=== PATIENT | female | born 1985 | race African-American/Black ===

== ENCOUNTER 2019-04-23 11:34 | Observation (INO) | payer OTHER ==
[~2019-04-23 11:34] MED LIST: Lactated Ringers 1,000 ML IV SCH; ceFAZolin 2 GM in Premix Bag 1 BAG IV SCH
[2019-04-23] MEDS ORDERED: Propofol 200 MG/20 ML SDV ONE (11:45)
[2019-04-23] MEDS ORDERED: fentaNYL 100 MCG/2 ML SDV ONE ×2 (11:45→13:59)
[2019-04-23] MEDS ORDERED: Ondansetron 4 MG/2 ML SDV ONE (11:45)
[2019-04-23] MEDS ORDERED: Lidocaine 2% 5 ML SDV ONE (11:45)
[2019-04-23] MEDS ORDERED: Dexamethasone 4 MG/ML 5 ML MDV ONE (11:45)
[2019-04-23] MEDS ORDERED: Midazolam 1 MG/ML 2 ML SDV ONE (11:46)
[2019-04-23] MEDS ORDERED: HYDROmorphone 2 MG/ML Syringe ONE (11:46)
[2019-04-23] MEDS ORDERED: Ketorolac 30 MG/ML SDV ONE (11:56)
--- NOTE | 2019-04-23 12:19 | PCM.PREANE ---
Preanesthetic Assessment - Anesthesia/Transfusion/Family Hx Anesthesia History: Prior Anesthesia Without Reaction Transfusion History: No Prior Transfusion(s) - Physical Assessment Height: 5 ft 7 in Weight: 79.379 kg - Lab Values: Laboratory Last Values Urine HCG, Qual NEGATIVE (NEGATIVE) 04/23/19 11:50 - Allergies Allergies/Adverse Reactions: Allergies Allergy/AdvReac Type Severity Reaction Status Date / Time bee venom protein (honey bee) Allergy Anaphylactic Verified 04/18/19 11:11 Shock food dye Allergy Rash Uncoded 04/18/19 11:15 PreAnesthesia Questionnaire HEENT History: Reports: None Cardiovascular History: Reports: None Respiratory History: Reports: Bronchitis, Recurrent Gastrointestinal History: Reports: None Genitourinary History: Reports: None Musculoskeletal History: Reports: Other (See Below) Other Musculoskeletal History: ACL Reconstruction- 2016 Neurological History: Reports: None Psychiatric History: Reports: PTSD Endocrine/Metabolic History: Reports: None Hematologic History: Reports: None Immunologic History: Reports: None Oncologic (Cancer) History: Reports: None Dermatologic History: Reports: None - Past Surgical History Head Surgeries/Procedures: Reports: None HEENT Surgical History: Reports: None Cardiovascular Surgical History: Reports: None Respiratory Surgical History: Reports: None GI Surgical History: Reports: None Female Surgical History: Reports: None Endocrine Surgical History: Reports: None Neurological Surgical History: Reports: None Musculoskeletal Surgical History: Reports: Arthroscopic Knee Oncologic Surgical History: Reports: None Dermatological Surgical History: Reports: None - SUBSTANCE USE Smoking Status *Q: Current Every Day Smoker Tobacco Use Within Last Twelve Months: Cigarettes - HOME MEDS Home Medications: Home Meds Divalproex Sodium [Depakote] 250 mg PO DAILY 04/18/19 [History] EPINEPHrine [Epinephrine] 1 injection SUBCUT ASDIRECTED PRN 04/18/19 [History] - CURRENT (IN HOUSE) MEDS Current Meds: Current Medications Cefazolin Sodium/Dextrose 2 gm (/ Premix) 50 mls @ 100 mls/hr IV ONCALL ADITYA Lactated Ringer's (Ringers, Lactated) 1,000 mls @ 100 mls/hr IV ASDIRECTED ADITYA Discontinued Medications Dexamethasone (Dexamethasone) Confirm Administered Dose 20 mg .ROUTE .STK-MED ONE Stop: 04/23/19 11:46 Fentanyl (Sublimaze) Confirm Administered Dose 100 mcg .ROUTE .STK-MED ONE Stop: 04/23/19 11:46 Hydromorphone HCl (Dilaudid) Confirm Administered Dose 2 mg .ROUTE .STK-MED ONE Stop: 04/23/19 11:47 Ketorolac Tromethamine (Toradol) Confirm Administered Dose 30 mg .ROUTE .STK- MED ONE Stop: 04/23/19 11:57 Lidocaine (Xylocaine-Mpf 2%) Confirm Administered Dose 5 ml .ROUTE .STK-MED ONE Stop: 04/23/19 11:46 Midazolam HCl (Versed 1 Mg/Ml) Confirm Administered Dose 2 mg .ROUTE .STK-MED ONE Stop: 04/23/19 11:47 Ondansetron HCl (Zofran) Confirm Administered Dose 4 mg .ROUTE .STK-MED ONE Stop: 04/23/19 11:46 Propofol (Diprivan 20 Ml) Confirm Administered Dose 400 mg .ROUTE .STK-MED ONE Stop: 04/23/19 11:46
--- NOTE | 2019-04-23 12:41 | PCM.PREANE ---
Preanesthetic Assessment - Anesthesia/Transfusion/Family Hx Anesthesia History: Prior Anesthesia Without Reaction Family History of Anesthesia Reaction: No Transfusion History: No Prior Transfusion(s) Intubation History: Unknown - Review of Systems General: No Symptoms Pulmonary: No Symptoms Cardiovascular: No Symptoms Gastrointestinal: No Symptoms Neurological: No Symptoms Other: Reports: None - Physical Assessment NPO Status Date: 04/22/19 NPO Status Time: 23:00 Vital Signs: Last Vital Signs Temp 36.4 C 04/23/19 12:00 Pulse 67 04/23/19 12:00 Resp 16 04/23/19 12:00 BP 112/55 L 04/23/19 12:00 Pulse Ox 97 04/23/19 12:00 Height: 5 ft 7 in Weight: 79.379 kg ASA Class: 2 Mental Status: Alert & Oriented x3 Airway Class: Mallampati = 1 Dentition: Reports: Normal Dentition Thyro-Mental Finger Breadths: 3 Mouth Opening Finger Breadths: 3 ROM/Head Extension: Full Lungs: Clear to Auscultation, Normal Respiratory Effort Cardiovascular: Regular Rate, Regular Rhythm - Lab Values: Laboratory Last Values Urine HCG, Qual NEGATIVE (NEGATIVE) 04/23/19 11:50 - Allergies Allergies/Adverse Reactions: Allergies Allergy/AdvReac Type Severity Reaction Status Date / Time bee venom protein (honey bee) Allergy Anaphylactic Verified 04/18/19 11:11 Shock food dye Allergy Rash Uncoded 04/18/19 11:15 - Blood Blood Available: No - Anesthesia Plan Pre-Op Medication Ordered: None - Acknowledgements Anesthesia Type Planned: General Anesthesia (femoral nerve block for postoperative pain control) Pt an Appropriate Candidate for the Planned Anesthesia: Yes Alternatives and Risks of Anesthesia Discussed w Pt/Guardian: Yes Pt/Guardian Understands and Agrees with Anesthesia Plan: Yes PreAnesthesia Questionnaire HEENT History: Reports: None Cardiovascular History: Reports: None Respiratory History: Reports: Bronchitis, Recurrent (seasonal) Gastrointestinal History: Reports: None Genitourinary History: Reports: None Musculoskeletal History: Reports: Other (See Below) Other Musculoskeletal History: ACL Reconstruction- 2016 Neurological History: Reports: None Psychiatric History: Reports: PTSD Endocrine/Metabolic History: Reports: None Hematologic History: Reports: None Immunologic History: Reports: None Oncologic (Cancer) History: Reports: None Dermatologic History: Reports: None - Past Surgical History Head Surgeries/Procedures: Reports: None HEENT Surgical History: Reports: None Cardiovascular Surgical History: Reports: None Respiratory Surgical History: Reports: None GI Surgical History: Reports: None Female Surgical History: Reports: None Endocrine Surgical History: Reports: None Neurological Surgical History: Reports: None Musculoskeletal Surgical History: Reports: Arthroscopic Knee (ACL repair '15 in [facility]) Oncologic Surgical History: Reports: None Dermatological Surgical History: Reports: None - SUBSTANCE USE Smoking Status *Q: Current Every Day Smoker (1/2 ppd) Tobacco Use Within Last Twelve Months: Cigarettes Days Per Week of Alcohol Use: 1 Recreational Drug Use History: Yes Recreational Drug Type: Reports: Marijuana/Hashish - HOME MEDS Home Medications: Home Meds Divalproex Sodium [Depakote] 250 mg PO DAILY 04/18/19 [History] EPINEPHrine [Epinephrine] 1 injection SUBCUT ASDIRECTED PRN 04/18/19 [History] - CURRENT (IN HOUSE) MEDS Current Meds: Current Medications Cefazolin Sodium/Dextrose 2 gm (/ Premix) 50 mls @ 100 mls/hr IV ONCALL ADITYA Lactated Ringer's (Ringers, Lactated) 1,000 mls @ 100 mls/hr IV ASDIRECTED ADITYA Last Admin: 04/23/19 12:23 Dose: 100 mls/hr Discontinued Medications Dexamethasone (Dexamethasone) Confirm Administered Dose 20 mg .ROUTE .STK-MED ONE Stop: 04/23/19 11:46 Fentanyl (Sublimaze) Confirm Administered Dose 100 mcg .ROUTE .STK-MED ONE Stop: 04/23/19 11:46 Hydromorphone HCl (Dilaudid) Confirm Administered Dose 2 mg .ROUTE .STK-MED ONE Stop: 04/23/19 11:47 Ketorolac Tromethamine (Toradol) Confirm Administered Dose 30 mg .ROUTE .STK- MED ONE Stop: 04/23/19 11:57 Lidocaine (Xylocaine-Mpf 2%) Confirm Administered Dose 5 ml .ROUTE .STK-MED ONE Stop: 04/23/19 11:46 Midazolam HCl (Versed 1 Mg/Ml) Confirm Administered Dose 2 mg .ROUTE .STK-MED ONE Stop: 04/23/19 11:47 Ondansetron HCl (Zofran) Confirm Administered Dose 4 mg .ROUTE .STK-MED ONE Stop: 04/23/19 11:46 Propofol (Diprivan 20 Ml) Confirm Administered Dose 400 mg .ROUTE .[facility] ONE Stop: 04/23/19 11:46
[2019-04-23] MEDS ORDERED: Bupivacaine 0.5%/EPINEPHrine 1:200,000 10 ML SDV ONE ×3 (13:13→18:11)
[2019-04-23] MEDS ORDERED: Bupivacaine 0.5% 30 ML SDV ONE (13:38)
[2019-04-23] MEDS ORDERED: ePHEDrine 50 MG/ML SDV ONE (13:50)
--- NOTE | 2019-04-23 14:37 | PCM.OPNOTE ---
- General Post-Op/Procedure Note Date of Surgery/Procedure: 04/23/19 Operative Procedure(s): r acl revision recon Pre Op Diagnosis: r acl rupture Post-Op Diagnosis: Same Anesthesia Technique: General ET Tube Primary Surgeon: Parker Romero Bulk Fluids Handler: Jennifer Roth EBL in mLs: 25 Complications: None Condition: Good
[2019-04-23] MEDS ORDERED: EPINEPHrine 1 MG/ML SDV ONE (14:50)
[2019-04-23] MEDS ORDERED: Albuterol/Ipratropium 3.0-0.5 MG/3 ML Neb Soln ONE (15:00)
[2019-04-23] MEDS ORDERED: Naloxone 0.4 MG/ML Syringe IVPUSH PRN (15:25)
[2019-04-23] MEDS ORDERED: fentaNYL 100 MCG/2 ML SDV IVPUSH PRN (15:25)
[2019-04-23] MEDS ORDERED: Albuterol 0.083% 2.5 MG/3 ML Neb Soln NEB PRN (15:25)
[2019-04-23] MEDS ORDERED: Atropine 0.1 MG/ML 10 ML Syringe IVPUSH PRN ×2 (15:25)
[2019-04-23] MEDS ORDERED: EPINEPHrine 1:10,000 1 MG/10 ML Syringe IVPUSH PRN (15:25)
[2019-04-23] MEDS ORDERED: 50% Dextrose in Water 50 ML Syringe IVPUSH PRN (15:25)
[2019-04-23] MEDS ORDERED: Albuterol/Ipratropium 3.0-0.5 MG/3 ML Neb Soln NEB ONE ×2 (15:39→16:24)
[2019-04-23] MEDS ORDERED: Acetaminophen/oxyCODONE 325-5 MG Tab ONE (16:25)
--- NOTE | 2019-04-23 16:26 | PCM.POSTAN ---
POST ANESTHESIA ASSESSMENT - MENTAL STATUS Mental Status: Alert, Oriented - VITAL SIGNS Vital Signs: Last Vital Signs Temp 97.2 F 04/23/19 14:49 Pulse 87 04/23/19 15:56 Resp 16 04/23/19 15:56 BP 110/61 04/23/19 15:56 Pulse Ox 95 04/23/19 15:56 - RESPIRATORY Respiratory Status: Respiratory Rate WNL, Airway Patent, O2 Saturation Stable - CARDIOVASCULAR CV Status: Pulse Rate WNL, Blood Pressure Stable - GASTROINTESTINAL GI Status: No Symptoms - PAIN Pain Score: 0 - POST OP HYDRATION Hydration Status: Adequate & Stable - OBSERVATIONS Free Text/Narrative:: No anesthesia complications noted
[2019-04-23] MEDS: Acetaminophen/oxyCODONE 325-5 MG Tab PO PRN ×2 (16:27→22:12)
[2019-04-23] MEDS ORDERED: Furosemide 40 MG/4 ML VIAL IVPUSH ONE (17:07)
[2019-04-23] MEDS ORDERED: Furosemide 20 MG/2 ML VIAL ONE (17:09)
--- NOTE | 2019-04-23 17:53 | CR ---
Chest: Portable view of the chest was obtained. Comparison: No prior chest x-rays available. Heart size and mediastinum are normal. Diffuse increased density seen throughout both lungs. Bony structures are grossly intact. Impression: 1. Diffuse increased density within both sides of the chest. Findings most likely represent diffuse pneumonia. Noncardiogenic pulmonary edema is also within the differential as well as cardiogenic pulmonary edema patient has had acute cardiac event. Less likely etiology is pulmonary hemorrhage. Diagnostic code #5 This report was dictated in MDT
--- NOTE | 2019-04-23 18:02 | PCM.SN ---
- Free Text/Narrative Note: 1600 Pt lungs sounding course so nurse gave duo nebulizer treatment. 1610 Notified that pt was coughing up bloody tinged sputum. Reported to me from LAURYN Collins doing the case that pt had an episode after extubation where she may have had a spasm. Stated that pt was suctioned and saturations recovered. Based off of history given to me about case and pt signs and symptoms my thoughts were that the pt has negative pulmonary edema from the laryngeal spasm. 1615 Dr. Lozano notified to discuss my thoughts and he agreed. Continued to watch patient 1705 Pt continues to cough up blood tinged sputum and doesn't seem to be improving o2 saturation on Room air 88% but with o2 96% Pt aware of condition and verbalizes understanding. Stat chest x-ray ordered and 10 mg of Lasix was given after x-ray which was at 1720. 1715 X ray shows pulmonary edema. 1725 called and notified of patients condition discussed admitting pt for observation do to pt's asthma history and current condition with no o2 improvement on Room air. 1800 Pt stating pain is 9/10 to right knee as well. Discussed pain block with patient and she agrees to letting me preform an adductor canal block. 1815 Dr. Duran called about patient admission to observation in ICU. Report given verbalized understanding of patient. 1825 Adductor cannal block preformed pt tolerated well. See procedure note. 1840 Pt taken to ICU per nursing staff. States pain is getting better in right knee. Pt's o2 saturation still 88 % on room air but 98% with o2. Pt still coughing up pink frothy sputum but I would say the frequency has decreased.
[2019-04-23] MEDS ORDERED: Bupivacaine 0.25%/EPINEPHrine 1:200,000 10 ML SDV ONE (18:13)
--- NOTE | 2019-04-23 18:16 | OR ---
SURGEON: Parekr Romero DATE OF PROCEDURE: 04/23/2019 PREOPERATIVE DIAGNOSIS: Right anterior cruciate ligament rupture. POSTOPERATIVE DIAGNOSIS: Right anterior cruciate ligament rupture. PROCEDURE: Right anterior cruciate ligament revision with reconstruction. PRIMARY SURGEON: Parker Romero DO. HVAC SPECIALIST: NOAH Copeland. ROLE OF HVAC SPECIALIST: Nurse practitioner, NOAH Copeland, played an essential role in assisting in this case, helping to position the patient, retract structures as needed, as well as suturing and cutting sutures as indicated. Her presence improved patient's safety and decreased operative time. ANESTHESIA: General endotracheal intubation. FLUID: Lactated Ringer's solution. ESTIMATED BLOOD LOSS: 25 mL. COMPLICATIONS: None. SPECIMEN: None. DISCHARGE DISPOSITION: Stable to PACU. HISTORY AND INDICATIONS FOR THE PROCEDURE: The patient is well known to me. We saw her in clinic. She had failed nonoperative treatment after a fall. Preoperative imaging confirmed the above- mentioned diagnosis. Risks and benefits of the procedure were explained to the patient. Informed consent was obtained. DETAILS OF PROCEDURE: The patient was seen preoperatively by myself and the Anesthesia staff in the preoperative holding area where the operative site was marked. She was brought to the operative suite by the Anesthesia staff where general anesthesia was administered. All extremities were found to be well padded. The left lower extremity was placed into a stirrup. The right lower extremity was placed into a leg perez. A well-padded tourniquet had been placed on the right thigh. The right lower extremity was then prepped and draped in a sterile manner. Time-out was called identifying the correct patient, the correct procedure, the correct site, and that antibiotics had been given within appropriate period of time. The right lower extremity was exsanguinated. Tourniquet was raised to 250 mmHg. A medial portal was made through the patellar tendon. Lateral portal was made just anterior to the patellar tendon, 1 cm distal to the patella. Lateral portal was then entered. The patellofemoral joint was evaluated and found to have no chondromalacia. Medial and lateral compartments were in good repair. There was a small medial meniscus tear, which was repaired using the shaver and ablation unit. Anterior cruciate ligament was torn from its tibial attachment and very little of it was remaining. I cleaned up the remainder of the anterior cruciate ligament. I then performed more of a notchplasty to provide more room and then prepared both the femoral and tibial graft sites. I then inserted a size 7 back wall guide at approximately the 10 o'clock position and drilled the guidewire out through the lateral femur. I incised the skin to bring it through. I brought this through to the appropriate point for measurement. I then measured a 42 from the button on the graft and then a 25 mm on the graft. The graft measured 10 mm, which had been prepared by my regulatory assistant. I then used a 4.5 reamer to go through, all the way through the lateral cortex, and then reamed 25 mm with a 10 mm reamer from inside towards the lateral cortex. After this had been done, I then used my guide pin to bring through the suture passing suture. I then focussed on tibial preparation. I have made an incision horizontally about 3 fingerbreadths distal to the joint line just lateral to the medial cortex. I then inserted my 55 degree guide just anterior to the medial tibial spine. I placed my guide pin through it and then removed my guide and then reamed to 10 mm. I then removed my reamer. We passed the suture passer and passing suture back through the tibial tunnel. We then passed the graft with a [place] button through, up through the femoral tunnel. I then flipped my button and then assured that it was stable by pulling on the tibial side. I then used my white sutures to bring the graft through to 25 mm. I then cycled the knee under tension with the ACL graft and then inserted a guide pin and then my 10 mm interference screw. I then inspected and debrided with the shaver any extra bone material and then tested the graft with the probe. It was in good position and had good stability with negative anterior drawer. I then cut my sutures and then my assist closed with 3-0 nylon interrupted horizontal mattress sutures followed by Betadine-soaked Adaptic, fluffs, and an Ger wrap. The patient was allowed to awaken from general anesthesia and taken to the PACU in stable condition. [id number] / MODL /[id number]
--- NOTE | 2019-04-23 19:00 | PCM48HPAN ---
Post Anesthesia Note - EVALUATION WITHIN 48HRS OF ANESTHETIC Vital Signs in Normal Range: Yes Patient Participated in Evaluation: Yes Respiratory Function Stable: No (Pt admitted to ICU observation for pulmonary edema) Airway Patent: Yes Cardiovascular Function Stable: Yes Hydration Status Stable: Yes Pain Control Satisfactory: Yes Nausea and Vomiting Control Satisfactory: Yes Mental Status Recovered: Yes Vital Signs: Last Vital Signs Temp 97.2 F 04/23/19 14:49 Pulse 87 04/23/19 15:56 Resp 16 04/23/19 15:56 BP 110/61 04/23/19 15:56 Pulse Ox 95 04/23/19 15:56 - COMMENTS/OBSERVATIONS Free Text/Narrative:: Pt had some episodes of coughing up bloody tinged sputum x-ray shows pulmonary edema. Pt unable to keep room air saturation greater than 90 %. Pt admitted to ICU observation for the night.
--- NOTE | 2019-04-23 19:07 | PCM.PRNOTE ---
- Free Text/Narrative Note: [id number] Adductor Canal Block Post op pain control/Surgeon request Ultrasound guided Sterile technique with chloroprep and sterile gloves 20 gauge stimiplex needle used. No adverse reactions pt tolerated well. No anesthesia concerns noted. Standard monitors applied during block Pt states pain went from 9-4 in a short period of time.
[2019-04-23 20:06] LABS: BLOOD UREA NITROGEN,BUN 12 mg/dL (7.0-18.0); CARBON DIOXIDE,CO2 22.9 mmol/L (21.0-32.0); CHLORIDE,CL 104 mmol/L (98-107); GLUCOSE RANDOM 136 mg/dL (74-106); POTASSIUM,K 3.4 mmol/L (3.5-5.1); SODIUM,NA 139 mmol/L (136-145)
--- NOTE | 2019-04-23 20:24 | PCM.CONS ---
H&P History of Present Illness - General Date of Service: 04/23/19 Admit Problem/Dx: Revision Right knee ACL - History of Present Illness Initial Comments - Free Text/Narative: 33 yo female with pmh of asthma who was admitted for hypoxia following right ACL repair. Patient following extubation from the ACL repair was suspected to have a laryngeal spasm and started to produce pink frothy sputum. She was noted to desatting to 88% on RA. Chest x-ray showed bilateral pulmonary edema. She was given IV lasix in PACU with improvement in oxygenation and is not satting 95% on room air. Right Lower Leg Pain Score (Numeric/FACES): 5 Headache Pain Score (Numeric/FACES): 6 - Related Data Allergies/Adverse Reactions: Allergies Allergy/AdvReac Type Severity Reaction Status Date / Time bee venom protein (honey bee) Allergy Anaphylactic Verified 04/18/19 11:11 Shock food dye Allergy Rash Uncoded 04/18/19 11:15 Home Medications: Home Meds Divalproex Sodium [Depakote] 250 mg PO DAILY 04/18/19 [History] EPINEPHrine [Epinephrine] 1 injection SUBCUT ASDIRECTED PRN 04/18/19 [History] oxyCODONE HCl/Acetaminophen [Percocet 5-325 mg Tablet] 1 each PO Q6HR #28 tablet 04/23/19 [Rx] levoFLOXacin [Levaquin] 750 mg PO DAILY #3 tab 04/25/19 [Rx] Past Medical History HEENT History: Reports: None Cardiovascular History: Reports: None Respiratory History: Reports: Bronchitis, Recurrent Gastrointestinal History: Reports: None Genitourinary History: Reports: None Musculoskeletal History: Reports: Other (See Below) Other Musculoskeletal History: ACL Reconstruction- 2015 Neurological History: Reports: None Psychiatric History: Reports: PTSD Endocrine/Metabolic History: Reports: None Hematologic History: Reports: None Immunologic History: Reports: None Oncologic (Cancer) History: Reports: None Dermatologic History: Reports: None - Past Surgical History Head Surgeries/Procedures: Reports: None HEENT Surgical History: Reports: None Cardiovascular Surgical History: Reports: None Respiratory Surgical History: Reports: None GI Surgical History: Reports: None Female Surgical History: Reports: None Endocrine Surgical History: Reports: None Neurological Surgical History: Reports: None Musculoskeletal Surgical History: Reports: Arthroscopic Knee Oncologic Surgical History: Reports: None Dermatological Surgical History: Reports: None Social & Family History - Tobacco Use Smoking Status *Q: Current Every Day Smoker Years of Tobacco use: 10 Packs/Tins Daily: 0.5 - Caffeine Use Caffeine Use: Reports: Coffee - Alcohol Use Days Per Week of Alcohol Use: 1 - Recreational Drug Use Recreational Drug Use: Yes Drug Use in Last 12 Months: Yes Recreational Drug Type: Reports: Marijuana/Hashish H&P Review of Systems - Review of Systems: Review Of Systems: Comprehensive ROS is negative, except as noted in HPI. Exam - Exam Exam: See Below - Vital Signs Vital Signs: Last Vital Signs Temp 36.7 C 04/23/19 18:45 Pulse 86 04/23/19 18:30 Resp 14 04/23/19 19:15 BP 132/69 04/23/19 19:15 Pulse Ox 95 04/23/19 19:15 Weight: 79.379 kg - Exam General: Alert, Oriented HEENT: Conjunctiva Clear, Mucosa Moist & [place] Lungs: Clear to Auscultation, Normal Respiratory Effort Cardiovascular: Regular Rate, Regular Rhythm GI/Abdominal Exam: Normal Bowel Sounds, Soft, Non-Tender Skin: Warm, Dry, Intact Neurological: No: Focal Deficit - Patient Data Lab Results Last 24 hrs: Laboratory Results - last 24 hr 04/23/19 04/23/19 04/23/19 Range/Units 11:50 19:29 19:29 WBC 17.59 H (4.0-11.0) K/uL RBC 4.95 (4.30-5.90) M/uL Hgb 13.8 (12.0-16.0) g/dL Hct 42.0 (36.0-46.0) % MCV 84.8 (80.0-98.0) fL MCH 27.9 (27.0-32.0) pg MCHC 32.9 (31.0-37.0) g/dL RDW Std Deviation 40.9 (28.0-62.0) fl RDW Coeff of Brayden 13 (11.0-15.0) % Plt Count 160 (150-400) K/uL MPV 9.20 (7.40-12.00) fL Neut % (Auto) 94.9 H (48.0-80.0) % Lymph % (Auto) 2.5 L (16.0-40.0) % [place] % (Auto) 2.5 (0.0-15.0) % Eos % (Auto) 0.0 (0.0-7.0) % Baso % (Auto) 0.1 (0.0-1.5) % Neut # (Auto) 16.7 H (1.4-5.7) K/uL Lymph # (Auto) 0.4 L (0.6-2.4) K/uL [place] # (Auto) 0.4 (0.0-0.8) K/uL Eos # (Auto) 0.0 (0.0-0.7) K/uL Baso # (Auto) 0.0 (0.0-0.1) K/uL Nucleated RBC % 0.0 /100WBC Nucleated RBCs # 0 K/uL Sodium 139 (136-145) mmol/L Potassium 3.4 L (3.5-5.1) mmol/L Chloride 104 (98-107) mmol/L Carbon Dioxide 22.9 (21.0-32.0) mmol/L BUN 12 (7.0-18.0) mg/dL Creatinine 1.0 (0.6-1.0) mg/dL Est Cr Clr Drug Dosing 79.27 mL/min Estimated GFR (MDRD) > 60.0 ml/min Glucose 136 H (74-106) mg/dL Calcium 8.6 (8.5-10.1) mg/dL Total Bilirubin 0.5 (0.2-1.0) mg/dL AST 17 (15-37) IU/L ALT 19 (14-63) IU/L Alkaline Phosphatase 42 L (46-116) U/L Total Protein 6.6 (6.4-8.2) g/dL Albumin 3.5 (3.4-5.0) g/dL Globulin 3.1 (2.6-4.0) g/dL Albumin/Globulin Ratio 1.1 (0.9-1.6) Urine HCG, Qual NEGATIVE (NEGATIVE) Result Diagrams: 04/25/19 06:13 04/25/19 06:13 Sepsis Event Note - Evaluation Sepsis Screening Result: No Definite Risk - Focused Exam Vital Signs: Vital Signs Temp Pulse Pulse Resp BP Pulse Ox 04/23/19 19:15 14 132/69 95 04/23/19 19:00 15 125/70 97 04/23/19 18:45 36.7 C 18 114/47 L 98 04/23/19 18:30 86 16 126/57 L 95 04/23/19 18:15 81 16 122/57 L 94 L 04/23/19 17:45 89 16 130/58 L 93 L 04/23/19 17:15 20 142/65 H 90 L 04/23/19 16:50 92 18 131/53 L 90 L 04/23/19 16:35 91 20 125/69 93 L 04/23/19 16:20 86 18 105/53 L 92 L 04/23/19 16:05 36.2 C 87 18 121/57 L 88 L 04/23/19 15:56 87 16 110/61 95 04/23/19 15:51 79 20 108/60 96 04/23/19 15:49 86 21 H 109/60 94 L 04/23/19 15:46 74 24 H 99/51 L 96 04/23/19 15:41 81 12 117/51 L 98 04/23/19 15:36 74 13 116/49 L 94 L 04/23/19 15:31 79 16 120/58 L 97 04/23/19 15:26 75 15 114/56 L 96 04/23/19 15:21 78 24 H 115/61 92 L 04/23/19 15:16 89 19 120/61 97 04/23/19 15:11 89 16 111/64 96 04/23/19 15:06 86 19 118/47 L 98 04/23/19 15:01 87 21 H 126/43 L 95 04/23/19 14:49 36.2 C 106 H 19 120/79 94 L 04/23/19 12:00 36.4 C 67 16 112/55 L 97 Date Exam was Performed: 04/29/19 Time Exam was Performed: 16:28 Consult PN Assessment/Plan Procedures: Procedures ELECTRIC STIMULATION THERAPY (02/24/19) HOT OR COLD PACKS THERAPY (02/24/19) PT EVAL LOW COMPLEX 20 MIN (02/24/19) THERAPEUTIC ACTIVITIES (02/24/19) THERAPEUTIC EXERCISES (02/24/19) X-RAY EXAM NECK SPINE 2-3 VW (11/04/18) X-RAY EXAM OF KNEE 3 (11/04/18) X-RAY EXAM THORAC SPINE 2VWS (11/04/18) Problem List Initiated/Reviewed/Updated: Yes My Orders Last 24 Hours: My Active Orders 04/23/19 19:12 B-TYPE NATRIURETIC PEPTIDE,BNP [CHEM] Routine 04/23/19 19:13 Echo Comp wo Cont [US] Routine Plan: 33 yo female admitted for negative pressure pulmonary edema from postextubation laryngeal spasm. Patient was given lasix and is currently doing well. A pneumonia is unlikely. We will monitor overnight.
[2019-04-23] MEDS ORDERED: Potassium Chloride 20 MEQ Tab.ER PO ONE (20:37)
[2019-04-23] MEDS: Morphine 2 MG/ML SYRINGE IVPUSH PRN (20:42)
[2019-04-23] MEDS: Nicotine 14 MG/24 Hr Patch TRDERM SCH (22:12)
[2019-04-24] MEDS: Acetaminophen/oxyCODONE 325-5 MG Tab PO PRN ×4 (03:09→19:37)
--- NOTE | 2019-04-24 07:51 | CR ---
Chest: Portable view of the chest was obtained. Comparison: Prior chest x-ray of 04/23/19. Diffuse increased density within both sides of the chest again noted. Findings are felt to be slightly improved from prior study. No worsening is seen. Heart size and mediastinum are normal. Bony structures are grossly intact. Impression: 1. Slightly improved chest. Diagnostic code #3 This report was dictated in MDT
[2019-04-24] MEDS: Nicotine 14 MG/24 Hr Patch TRDERM SCH (08:56)
[2019-04-24] MEDS: Docusate Sodium 100 MG Cap PO SCH (10:02)
[2019-04-24] MEDS: Morphine 2 MG/ML SYRINGE IVPUSH PRN (10:03)
[2019-04-24] MEDS ORDERED: Furosemide 40 MG/4 ML VIAL IVPUSH ONE (10:08)
[2019-04-24 11:33] LABS: BLOOD UREA NITROGEN,BUN 11 mg/dL (7.0-18.0); CARBON DIOXIDE,CO2 25.3 mmol/L (21.0-32.0); CHLORIDE,CL 107 mmol/L (98-107); GLUCOSE RANDOM 81 mg/dL (74-106); POTASSIUM,K 3.6 mmol/L (3.5-5.1); SODIUM,NA 142 mmol/L (136-145)
[2019-04-24] MEDS: Levofloxacin/Dextrose 5%-Water 750 MG in Premix Bag 1 BAG IV SCH (11:36)
--- NOTE | 2019-04-24 12:38 | PCM.CONSN ---
- General Info Date of Service: 04/24/19 Admission Dx/Problem (Free Text): Negative pressure pulmonary edema s/p extubation Subjective Update: Feeling improved today, continues to cough up hemotysis. Pain is elevating to knee. No chest pain. Breathing ok, has Bipap on now. in good spirits. really wanting to go home soon. Functional Status: Reports: Tolerating Diet. Denies: Pain Controlled - Review of Systems General: Reports: No Symptoms. Denies: Fever, Weakness, Fatigue HEENT: Reports: No Symptoms. Denies: Sore Throat, Visual Changes Pulmonary: Reports: Cough, Sputum, Hemoptysis. Denies: Shortness of Breath, Pleuritic Chest Pain Cardiovascular: Reports: No Symptoms. Denies: Chest Pain Gastrointestinal: Reports: No Symptoms. Denies: Abdominal Pain, Nausea, Vomiting Genitourinary: Reports: No Symptoms. Denies: Dysuria, Frequency, Burning Musculoskeletal: Reports: Joint Pain (knee pain) Skin: Reports: No Symptoms Neurological: Reports: No Symptoms Psychiatric: Reports: No Symptoms - Patient Data Vitals - Most Recent: Last Vital Signs Temp 98 F 04/24/19 07:30 Pulse 87 04/24/19 09:00 Resp 16 04/24/19 09:00 BP 117/70 04/24/19 09:00 Pulse Ox 98 04/24/19 09:00 Weight - Most Recent: 79.379 kg I&O - Last 24 Hours: Intake & Output 04/23/19 04/24/19 04/24/19 22:59 06:59 14:59 Intake Total 1600 800 Output Total 1300 Balance 1600 -500 Lab Results Last 24 Hours: Laboratory Results - last 24 hr 04/23/19 04/23/19 04/23/19 Range/Units 19:29 19:29 19:29 WBC 17.59 H (4.0-11.0) K/uL RBC 4.95 (4.30-5.90) M/uL Hgb 13.8 (12.0-16.0) g/dL Hct 42.0 (36.0-46.0) % MCV 84.8 (80.0-98.0) fL MCH 27.9 (27.0-32.0) pg MCHC 32.9 (31.0-37.0) g/dL RDW Std Deviation 40.9 (28.0-62.0) fl RDW Coeff of Brayden 13 (11.0-15.0) % Plt Count 160 (150-400) K/uL MPV 9.20 (7.40-12.00) fL Neut % (Auto) 94.9 H (48.0-80.0) % Lymph % (Auto) 2.5 L (16.0-40.0) % [place] % (Auto) 2.5 (0.0-15.0) % Eos % (Auto) 0.0 (0.0-7.0) % Baso % (Auto) 0.1 (0.0-1.5) % Neut # (Auto) 16.7 H (1.4-5.7) K/uL Lymph # (Auto) 0.4 L (0.6-2.4) K/uL Franklin # (Auto) 0.4 (0.0-0.8) K/uL Eos # (Auto) 0.0 (0.0-0.7) K/uL Baso # (Auto) 0.0 (0.0-0.1) K/uL Nucleated RBC % 0.0 /100WBC Nucleated RBCs # 0 K/uL Sodium 139 (136-145) mmol/L Potassium 3.4 L (3.5-5.1) mmol/L Chloride 104 (98-107) mmol/L Carbon Dioxide 22.9 (21.0-32.0) mmol/L BUN 12 (7.0-18.0) mg/dL Creatinine 1.0 (0.6-1.0) mg/dL Est Cr Clr Drug Dosing 79.27 mL/min Estimated GFR (MDRD) > 60.0 ml/min Glucose 136 H (74-106) mg/dL Calcium 8.6 (8.5-10.1) mg/dL Total Bilirubin 0.5 (0.2-1.0) mg/dL AST 17 (15-37) IU/L ALT 19 (14-63) IU/L Alkaline Phosphatase 42 L (46-116) U/L B-Natriuretic Peptide 18 (<100) PG/ML Total Protein 6.6 (6.4-8.2) g/dL Albumin 3.5 (3.4-5.0) g/dL Globulin 3.1 (2.6-4.0) g/dL Albumin/Globulin Ratio 1.1 (0.9-1.6) 04/24/19 04/24/19 Range/Units 10:24 10:24 WBC 16.15 H (4.0-11.0) K/uL RBC 4.90 (4.30-5.90) M/uL Hgb 13.8 (12.0-16.0) g/dL Hct 41.7 (36.0-46.0) % MCV 85.1 (80.0-98.0) fL MCH 28.2 (27.0-32.0) pg MCHC 33.1 (31.0-37.0) g/dL RDW Std Deviation 41.9 (28.0-62.0) fl RDW Coeff of Brayden 14 (11.0-15.0) % Plt Count 178 (150-400) K/uL MPV 9.50 (7.40-12.00) fL Neut % (Auto) 77.7 (48.0-80.0) % Lymph % (Auto) 18.0 (16.0-40.0) % Franklin % (Auto) 4.1 (0.0-15.0) % Eos % (Auto) 0.1 (0.0-7.0) % Baso % (Auto) 0.1 (0.0-1.5) % Neut # (Auto) 12.6 H (1.4-5.7) K/uL Lymph # (Auto) 2.9 H (0.6-2.4) K/uL Franklin # (Auto) 0.7 (0.0-0.8) K/uL Eos # (Auto) 0.0 (0.0-0.7) K/uL Baso # (Auto) 0.0 (0.0-0.1) K/uL Nucleated RBC % 0.0 /100WBC Nucleated RBCs # 0 K/uL Sodium 142 (136-145) mmol/L Potassium 3.6 (3.5-5.1) mmol/L Chloride 107 (98-107) mmol/L Carbon Dioxide 25.3 (21.0-32.0) mmol/L BUN 11 (7.0-18.0) mg/dL Creatinine 0.9 (0.6-1.0) mg/dL Est Cr Clr Drug Dosing 88.07 mL/min Estimated GFR (MDRD) > 60.0 ml/min Glucose 81 (74-106) mg/dL Calcium 9.2 (8.5-10.1) mg/dL Total Bilirubin (0.2-1.0) mg/dL AST (15-37) IU/L ALT (14-63) IU/L Alkaline Phosphatase (46-116) U/L B-Natriuretic Peptide (<100) PG/ML Total Protein (6.4-8.2) g/dL Albumin (3.4-5.0) g/dL Globulin (2.6-4.0) g/dL Albumin/Globulin Ratio (0.9-1.6) Med Orders - Current: Current Medications Docusate Sodium (Colace) 100 mg PO DAILY [facility] Last Admin: 04/24/19 10:02 Dose: 100 mg Cefazolin Sodium/Dextrose 2 gm (/ Premix) 50 mls @ 100 mls/hr IV ONCALL [facility] Levofloxacin/Dextrose 750 mg/ (Premix) 150 mls @ 100 mls/hr IV Q24H [facility] Last Admin: 04/24/19 11:36 Dose: 100 mls/hr Morphine Sulfate (Morphine) 2 mg IVPUSH Q2H PRN PRN Reason: Pain Last Admin: 04/24/19 10:03 Dose: 2 mg Nicotine (Habitrol) 14 mg TRDERM DAILY [facility] Last Admin: 04/24/19 08:56 Dose: 14 mg Oxycodone/Acetaminophen (Percocet 325-5 Mg) 1 tab PO Q6H PRN PRN Reason: Pain Last Admin: 04/24/19 08:57 Dose: 1 tab Discontinued Medications Albuterol (Proventil Neb Soln) 2.5 mg NEB ONETIME PRN PRN Reason: Wheezing Albuterol/Ipratropium (Duoneb 3.0-0.5 Mg/3 Ml) Confirm Administered Dose 3 ml .ROUTE .STK-MED ONE Stop: 04/23/19 15:01 Last Admin: 04/23/19 16:51 Dose: 3 ml Albuterol/Ipratropium (Duoneb 3.0-0.5 Mg/3 Ml) 3 ml NEB ONETIME ONE Stop: 04/23/19 15:40 Last Admin: 04/23/19 15:05 Dose: 3 ml Albuterol/Ipratropium (Duoneb 3.0-0.5 Mg/3 Ml) 3 ml NEB ONETIME ONE Stop: 04/23/19 16:25 Last Admin: 04/23/19 19:52 Dose: Not Given Atropine Sulfate (Atropine 0.1 Mg/Ml) 0.5 mg IVPUSH ASDIRECTED PRN PRN Reason: Hypo-perfusion Atropine Sulfate (Atropine 0.1 Mg/Ml) 1 mg IVPUSH ASDIRECTED PRN PRN Reason: Hypo-Perfusion Bupivacaine HCl (Marcaine 0.5%) Confirm Administered Dose 30 ml .ROUTE .STK-MED ONE Stop: 04/23/19 13:39 Bupivacaine HCl/Epinephrine Bitart (Marcaine 0.5%/Epinephrine 1:200,000) Confirm Administered Dose 20 ml .ROUTE .STK-MED ONE Stop: 04/23/19 13:14 Bupivacaine HCl/Epinephrine Bitart (Marcaine 0.5%/Epinephrine 1:200,000) Confirm Administered Dose 30 ml .ROUTE .STK-MED ONE Stop: 04/23/19 13:15 Bupivacaine HCl/Epinephrine Bitart (Marcaine 0.5%/Epinephrine 1:200,000) Confirm Administered Dose 10 ml .ROUTE .STK-MED ONE Stop: 04/23/19 18:12 Bupivacaine HCl/Epinephrine Bitart (Marcaine 0.25%/Epinephrine 1:200,000) Confirm Administered Dose 20 ml .ROUTE .STK-MED ONE Stop: 04/23/19 18:14 Dexamethasone (Dexamethasone) Confirm Administered Dose 20 mg .ROUTE .STK-MED ONE Stop: 04/23/19 11:46 Dextrose/Water (Dextrose 50% In Water) 50 ml IVPUSH ASDIRECTED PRN PRN Reason: Hypoglycemia Ephedrine Sulfate (Ephedrine Sulfate) Confirm Administered Dose 50 mg .ROUTE .STK-MED ONE Stop: 04/23/19 13:51 Epinephrine HCl (Adrenalin) Confirm Administered Dose 1 mg .ROUTE .STK-MED ONE Stop: 04/23/19 14:51 Epinephrine HCl (Epinephrine 1:10,000) 1 mg IVPUSH ASDIRECTED PRN PRN Reason: ACLS Guidelines Fentanyl (Sublimaze) Confirm Administered Dose 100 mcg .ROUTE .STK-MED ONE Stop: 04/23/19 11:46 Fentanyl (Sublimaze) Confirm Administered Dose 100 mcg .ROUTE .STK-MED ONE Stop: 04/23/19 14:00 Fentanyl (Sublimaze) 50 mcg IVPUSH Q5M PRN PRN Reason: Pain Last Admin: 04/23/19 15:31 Dose: 50 mcg Furosemide (Lasix) 10 mg IVPUSH NOW ONE Stop: 04/23/19 17:08 Last Admin: 04/23/19 19:39 Dose: Not Given Furosemide (Lasix) Confirm Administered Dose 20 mg .ROUTE .STK-MED ONE Stop: 04/23/19 17:10 Last Admin: 04/23/19 19:39 Dose: Not Given Furosemide (Lasix) 40 mg IVPUSH NOW ONE Stop: 04/24/19 10:09 Last Admin: 04/24/19 11:24 Dose: 40 mg Hydromorphone HCl (Dilaudid) Confirm Administered Dose 2 mg .ROUTE .STK-MED ONE Stop: 04/23/19 11:47 Lactated Ringer's (Ringers, Lactated) 1,000 mls @ 100 mls/hr IV ASDIRECTED ADITYA Last Admin: 04/23/19 12:23 Dose: 100 mls/hr Ketorolac Tromethamine (Toradol) Confirm Administered Dose 30 mg .ROUTE .STK- MED ONE Stop: 04/23/19 11:57 Lidocaine (Xylocaine-Mpf 2%) Confirm Administered Dose 5 ml .ROUTE .STK-MED ONE Stop: 04/23/19 11:46 Midazolam HCl (Versed 1 Mg/Ml) Confirm Administered Dose 2 mg .ROUTE .STK-MED ONE Stop: 04/23/19 11:47 Naloxone HCl (Narcan) 0.1 mg IVPUSH ASDIRECTED PRN PRN Reason: Respiratory Depression Ondansetron HCl (Zofran) Confirm Administered Dose 4 mg .ROUTE .STK-MED ONE Stop: 04/23/19 11:46 Oxycodone/Acetaminophen (Percocet 325-5 Mg) Confirm Administered Dose 1 tab .ROUTE .STK-MED ONE Stop: 04/23/19 16:26 Last Admin: 04/23/19 19:52 Dose: Not Given Potassium Chloride (Klor-Con M20) 40 meq PO ONETIME ONE Stop: 04/23/19 20:38 Last Admin: 04/23/19 20:57 Dose: 40 meq Propofol (Diprivan 20 Ml) Confirm Administered Dose 400 mg .ROUTE .STK-MED ONE Stop: 04/23/19 11:46 - Exam Quality Assessment: Supplemental Oxygen, DVT Prophylaxis (SCDs) Neck: Supple Lungs: Normal Respiratory Effort, Crackles (bibasilar) Cardiovascular: Regular Rate, Regular Rhythm GI/Abdominal Exam: Normal Bowel Sounds, Soft, Non-Tender Extremities: Normal Inspection, Normal Range of Motion Wound/Incisions: Dressing Dry and Intact Neurological: No New Focal Deficit Psy/Mental Status: Alert, Normal Affect, Normal Mood Sepsis Event Note - Evaluation Sepsis Screening Result: No Definite Risk - Focused Exam Vital Signs: Vital Signs Temp Pulse Resp BP Pulse Ox 04/24/19 09:00 87 16 117/70 98 04/24/19 08:00 91 18 107/61 100 04/24/19 07:30 98 F 79 21 H 99/47 L 100 04/24/19 07:00 17 99/47 L 100 04/24/19 06:00 26 H 108/55 L 97 04/24/19 05:00 97.8 F 19 102/57 L 98 04/24/19 04:00 21 H 115/59 L 98 04/24/19 03:00 16 114/61 97 04/24/19 02:00 16 123/60 98 04/24/19 01:00 23 H 115/66 97 Date Exam was Performed: 04/24/19 Time Exam was Performed: 14:08 Consult PN Assessment/Plan POD#: 1 Procedures: Procedures ELECTRIC STIMULATION THERAPY (02/24/19) HOT OR COLD PACKS THERAPY (02/24/19) PT EVAL LOW COMPLEX 20 MIN (02/24/19) THERAPEUTIC ACTIVITIES (02/24/19) THERAPEUTIC EXERCISES (02/24/19) X-RAY EXAM NECK SPINE 2-3 VW (11/04/18) X-RAY EXAM OF KNEE 3 (11/04/18) X-RAY EXAM THORAC SPINE 2VWS (11/04/18) (1) Pulmonary edema SNOMED Code(s): 53575021 Code(s): J81.1 - CHRONIC PULMONARY EDEMA Current Visit: Yes (2) S/P ACL repair SNOMED Code(s): 522566752, 79432579, 684571629 Code(s): Z98.890 - OTHER SPECIFIED POSTPROCEDURAL STATES Current Visit: Yes (3) History of asthma SNOMED Code(s): 961149871 Code(s): Z87.09 - PERSONAL HISTORY OF OTHER DISEASES OF THE RESPIRATORY SYSTEM Current Visit: Yes Problem List Initiated/Reviewed/Updated: Yes My Orders Last 24 Hours: My Active Orders 04/24/19 09:45 Docusate Sodium [Colace] 100 mg PO DAILY 04/24/19 10:15 Levofloxacin/Dextrose 5%-Water [Levaquin in D5W 750 MG/150 ML] 750 mg Premix Bag 1 bag IV Q24H Plan: This 33 year old female admitted to ICU for negative pressure pulmonary edema s/ p extubation after ACL repair 1. negative pressure pulmonary edema - Placed on Bipap this morning per Anesthesia. No respiratory distress, attempt to move edema. - CXR shows improvement of edema, continues bibasilar. - Continue Oxygen therapy - Lasix 40 mg IV today. - Monitor - Will start Levaquin for possible aspiration pneumonia. Leukocytosis remains elevated, which could be multifactorial from recent surgery as well. 2. S/P ACL repair - Pain control per Orthopedics. VTE prophylaxis: SCDs only due to hemoptysis Dispo: 1-2 days pending improvement.
[2019-04-24] MEDS: Ketorolac 15 MG/ML SDV IVPUSH SCH ×2 (15:08→20:48)
--- NOTE | 2019-04-24 17:24 | PCM.SURGPN ---
- General Info Date of Service: 04/24/19 (0900) Date of Surgery/Procedure: 04/23/19 POD#: 1 Post-Op Diagnosis: Right ACL reconstruction Functional Status: Reports: Pain Controlled (Reports having no pain this morning as she received a adductor canal block from anesthesia last evening. ), Tolerating Diet - Review of Systems General: Denies: Fever Pulmonary: Reports: Other (under medine management) Musculoskeletal: Denies: Joint Pain - Patient Data Vitals - Most Recent: Last Vital Signs Temp 36.0 C L 04/24/19 16:30 Pulse 77 04/24/19 16:30 Resp 17 04/24/19 16:30 BP 113/55 L 04/24/19 16:30 Pulse Ox 100 04/24/19 16:30 Weight - Most Recent: 79.379 kg I&O - Last 24 Hours: Intake & Output 04/24/19 04/24/19 04/24/19 06:59 14:59 22:59 Intake Total 800 950 Output Total 1300 1200 Balance -500 -250 Lab Results Last 24 Hrs: Laboratory Results - last 24 hr 04/23/19 04/23/19 04/23/19 Range/Units 19:29 19:29 19:29 WBC 17.59 H (4.0-11.0) K/uL RBC 4.95 (4.30-5.90) M/uL Hgb 13.8 (12.0-16.0) g/dL Hct 42.0 (36.0-46.0) % MCV 84.8 (80.0-98.0) fL MCH 27.9 (27.0-32.0) pg MCHC 32.9 (31.0-37.0) g/dL RDW Std Deviation 40.9 (28.0-62.0) fl RDW Coeff of Brayden 13 (11.0-15.0) % Plt Count 160 (150-400) K/uL MPV 9.20 (7.40-12.00) fL Neut % (Auto) 94.9 H (48.0-80.0) % Lymph % (Auto) 2.5 L (16.0-40.0) % [place] % (Auto) 2.5 (0.0-15.0) % Eos % (Auto) 0.0 (0.0-7.0) % Baso % (Auto) 0.1 (0.0-1.5) % Neut # (Auto) 16.7 H (1.4-5.7) K/uL Lymph # (Auto) 0.4 L (0.6-2.4) K/uL [place] # (Auto) 0.4 (0.0-0.8) K/uL Eos # (Auto) 0.0 (0.0-0.7) K/uL Baso # (Auto) 0.0 (0.0-0.1) K/uL Nucleated RBC % 0.0 /100WBC Nucleated RBCs # 0 K/uL Sodium 139 (136-145) mmol/L Potassium 3.4 L (3.5-5.1) mmol/L Chloride 104 (98-107) mmol/L Carbon Dioxide 22.9 (21.0-32.0) mmol/L BUN 12 (7.0-18.0) mg/dL Creatinine 1.0 (0.6-1.0) mg/dL Est Cr Clr Drug Dosing 79.27 mL/min Estimated GFR (MDRD) > 60.0 ml/min Glucose 136 H (74-106) mg/dL Calcium 8.6 (8.5-10.1) mg/dL Total Bilirubin 0.5 (0.2-1.0) mg/dL AST 17 (15-37) IU/L ALT 19 (14-63) IU/L Alkaline Phosphatase 42 L (46-116) U/L B-Natriuretic Peptide 18 (<100) PG/ML Total Protein 6.6 (6.4-8.2) g/dL Albumin 3.5 (3.4-5.0) g/dL Globulin 3.1 (2.6-4.0) g/dL Albumin/Globulin Ratio 1.1 (0.9-1.6) 04/24/19 04/24/19 Range/Units 10:24 10:24 WBC 16.15 H (4.0-11.0) K/uL RBC 4.90 (4.30-5.90) M/uL Hgb 13.8 (12.0-16.0) g/dL Hct 41.7 (36.0-46.0) % MCV 85.1 (80.0-98.0) fL MCH 28.2 (27.0-32.0) pg MCHC 33.1 (31.0-37.0) g/dL RDW Std Deviation 41.9 (28.0-62.0) fl RDW Coeff of Brayden 14 (11.0-15.0) % Plt Count 178 (150-400) K/uL MPV 9.50 (7.40-12.00) fL Neut % (Auto) 77.7 (48.0-80.0) % Lymph % (Auto) 18.0 (16.0-40.0) % [place] % (Auto) 4.1 (0.0-15.0) % Eos % (Auto) 0.1 (0.0-7.0) % Baso % (Auto) 0.1 (0.0-1.5) % Neut # (Auto) 12.6 H (1.4-5.7) K/uL Lymph # (Auto) 2.9 H (0.6-2.4) K/uL [place] # (Auto) 0.7 (0.0-0.8) K/uL Eos # (Auto) 0.0 (0.0-0.7) K/uL Baso # (Auto) 0.0 (0.0-0.1) K/uL Nucleated RBC % 0.0 /100WBC Nucleated RBCs # 0 K/uL Sodium 142 (136-145) mmol/L Potassium 3.6 (3.5-5.1) mmol/L Chloride 107 (98-107) mmol/L Carbon Dioxide 25.3 (21.0-32.0) mmol/L BUN 11 (7.0-18.0) mg/dL Creatinine 0.9 (0.6-1.0) mg/dL Est Cr Clr Drug Dosing 88.07 mL/min Estimated GFR (MDRD) > 60.0 ml/min Glucose 81 (74-106) mg/dL Calcium 9.2 (8.5-10.1) mg/dL Total Bilirubin (0.2-1.0) mg/dL AST (15-37) IU/L ALT (14-63) IU/L Alkaline Phosphatase (46-116) U/L B-Natriuretic Peptide (<100) PG/ML Total Protein (6.4-8.2) g/dL Albumin (3.4-5.0) g/dL Globulin (2.6-4.0) g/dL Albumin/Globulin Ratio (0.9-1.6) Med Orders - Current: Current Medications Docusate Sodium (Colace) 100 mg PO DAILY [facility] Last Admin: 04/24/19 10:02 Dose: 100 mg Cefazolin Sodium/Dextrose 2 gm (/ Premix) 50 mls @ 100 mls/hr IV ONCALL [facility] Levofloxacin/Dextrose 750 mg/ (Premix) 150 mls @ 100 mls/hr IV Q24H [facility] Last Admin: 04/24/19 11:36 Dose: 100 mls/hr Ketorolac Tromethamine (Toradol) 15 mg IVPUSH Q6H [facility] Stop: 04/25/19 08:46 Last Admin: 04/24/19 15:08 Dose: 15 mg Morphine Sulfate (Morphine) 2 mg IVPUSH Q2H PRN PRN Reason: Pain Last Admin: 04/24/19 10:03 Dose: 2 mg Nicotine (Habitrol) 14 mg TRDERM DAILY [facility] Last Admin: 04/24/19 08:56 Dose: 14 mg Oxycodone/Acetaminophen (Percocet 325-5 Mg) 2 tab PO Q6H PRN PRN Reason: Pain (severe 7-10) Last Admin: 04/24/19 12:55 Dose: 2 tab Discontinued Medications Albuterol (Proventil Neb Soln) 2.5 mg NEB ONETIME PRN PRN Reason: Wheezing Albuterol/Ipratropium (Duoneb 3.0-0.5 Mg/3 Ml) Confirm Administered Dose 3 ml .ROUTE .STK-MED ONE Stop: 04/23/19 15:01 Last Admin: 04/23/19 16:51 Dose: 3 ml Albuterol/Ipratropium (Duoneb 3.0-0.5 Mg/3 Ml) 3 ml NEB ONETIME ONE Stop: 04/23/19 15:40 Last Admin: 04/23/19 15:05 Dose: 3 ml Albuterol/Ipratropium (Duoneb 3.0-0.5 Mg/3 Ml) 3 ml NEB ONETIME ONE Stop: 04/23/19 16:25 Last Admin: 04/23/19 19:52 Dose: Not Given Atropine Sulfate (Atropine 0.1 Mg/Ml) 0.5 mg IVPUSH ASDIRECTED PRN PRN Reason: Hypo-perfusion Atropine Sulfate (Atropine 0.1 Mg/Ml) 1 mg IVPUSH ASDIRECTED PRN PRN Reason: Hypo-Perfusion Bupivacaine HCl (Marcaine 0.5%) Confirm Administered Dose 30 ml .ROUTE .STK-MED ONE Stop: 04/23/19 13:39 Bupivacaine HCl/Epinephrine Bitart (Marcaine 0.5%/Epinephrine 1:200,000) Confirm Administered Dose 20 ml .ROUTE .STK-MED ONE Stop: 04/23/19 13:14 Bupivacaine HCl/Epinephrine Bitart (Marcaine 0.5%/Epinephrine 1:200,000) Confirm Administered Dose 30 ml .ROUTE .STK-MED ONE Stop: 04/23/19 13:15 Bupivacaine HCl/Epinephrine Bitart (Marcaine 0.5%/Epinephrine 1:200,000) Confirm Administered Dose 10 ml .ROUTE .STK-MED ONE Stop: 04/23/19 18:12 Bupivacaine HCl/Epinephrine Bitart (Marcaine 0.25%/Epinephrine 1:200,000) Confirm Administered Dose 20 ml .ROUTE .STK-MED ONE Stop: 04/23/19 18:14 Dexamethasone (Dexamethasone) Confirm Administered Dose 20 mg .ROUTE .STK-MED ONE Stop: 04/23/19 11:46 Dextrose/Water (Dextrose 50% In Water) 50 ml IVPUSH ASDIRECTED PRN PRN Reason: Hypoglycemia Ephedrine Sulfate (Ephedrine Sulfate) Confirm Administered Dose 50 mg .ROUTE .STK-MED ONE Stop: 04/23/19 13:51 Epinephrine HCl (Adrenalin) Confirm Administered Dose 1 mg .ROUTE .STK-MED ONE Stop: 04/23/19 14:51 Epinephrine HCl (Epinephrine 1:10,000) 1 mg IVPUSH ASDIRECTED PRN PRN Reason: ACLS Guidelines Fentanyl (Sublimaze) Confirm Administered Dose 100 mcg .ROUTE .STK-MED ONE Stop: 04/23/19 11:46 Fentanyl (Sublimaze) Confirm Administered Dose 100 mcg .ROUTE .STK-MED ONE Stop: 04/23/19 14:00 Fentanyl (Sublimaze) 50 mcg IVPUSH Q5M PRN PRN Reason: Pain Last Admin: 04/23/19 15:31 Dose: 50 mcg Furosemide (Lasix) 10 mg IVPUSH NOW ONE Stop: 04/23/19 17:08 Last Admin: 04/23/19 19:39 Dose: Not Given Furosemide (Lasix) Confirm Administered Dose 20 mg .ROUTE .STK-MED ONE Stop: 04/23/19 17:10 Last Admin: 04/23/19 19:39 Dose: Not Given Furosemide (Lasix) 40 mg IVPUSH NOW ONE Stop: 04/24/19 10:09 Last Admin: 04/24/19 11:24 Dose: 40 mg Hydromorphone HCl (Dilaudid) Confirm Administered Dose 2 mg .ROUTE .STK-MED ONE Stop: 04/23/19 11:47 Lactated Ringer's (Ringers, Lactated) 1,000 mls @ 100 mls/hr IV ASDIRECTED ADITYA Last Admin: 04/23/19 12:23 Dose: 100 mls/hr Ketorolac Tromethamine (Toradol) Confirm Administered Dose 30 mg .ROUTE .STK- MED ONE Stop: 04/23/19 11:57 Lidocaine (Xylocaine-Mpf 2%) Confirm Administered Dose 5 ml .ROUTE .STK-MED ONE Stop: 04/23/19 11:46 Midazolam HCl (Versed 1 Mg/Ml) Confirm Administered Dose 2 mg .ROUTE .STK-MED ONE Stop: 04/23/19 11:47 Naloxone HCl (Narcan) 0.1 mg IVPUSH ASDIRECTED PRN PRN Reason: Respiratory Depression Ondansetron HCl (Zofran) Confirm Administered Dose 4 mg .ROUTE .STK-MED ONE Stop: 04/23/19 11:46 Oxycodone/Acetaminophen (Percocet 325-5 Mg) 1 tab PO Q6H PRN PRN Reason: Pain Last Admin: 04/24/19 08:57 Dose: 1 tab Oxycodone/Acetaminophen (Percocet 325-5 Mg) Confirm Administered Dose 1 tab .ROUTE .STK-MED ONE Stop: 04/23/19 16:26 Last Admin: 04/23/19 19:52 Dose: Not Given Potassium Chloride (Klor-Con M20) 40 meq PO ONETIME ONE Stop: 04/23/19 20:38 Last Admin: 04/23/19 20:57 Dose: 40 meq Propofol (Diprivan 20 Ml) Confirm Administered Dose 400 mg .ROUTE .STK-MED ONE Stop: 04/23/19 11:46 - Exam Wound/Incisions: Dressing Dry and Intact (proximal incision was reinforced last night by nursing with additional bandages with no continued drainage. Remainder of OLIVER bandage CDI) General: Alert, Oriented, Cooperative Extremities: No: Pedal Edema Neurological: Normal Speech Psy/Mental Status: Alert, Normal Affect, Normal Mood Sepsis Event Note - Evaluation Sepsis Screening Result: No Definite Risk - Focused Exam Vital Signs: Vital Signs Temp Pulse Resp BP Pulse Ox 04/24/19 16:30 36.0 C L 77 17 113/55 L 100 04/24/19 13:00 80 16 116/61 99 04/24/19 12:22 36.2 C 88 16 115/64 100 04/24/19 11:00 93 17 100 04/24/19 10:00 86 14 120/47 L 99 04/24/19 09:00 87 16 117/70 98 04/24/19 08:00 91 18 107/61 100 04/24/19 07:30 36.6 C 79 21 H 99/47 L 100 04/24/19 07:00 17 99/47 L 100 04/24/19 06:00 26 H 108/55 L 97 Date Exam was Performed: 04/24/19 Time Exam was Performed: 17:19 - Problem List Review Problem List Initiated/Reviewed/Updated: Yes - My Orders Last 24 Hours: Active Orders 24 hr Category Date Time Status Admission Status [Patient Status] [ADT] Routine ADT 04/23/19 20:26 Active Antiembolic Devices [RC] PER UNIT ROUTINE Care 04/23/19 20:38 Active BIPAP [RT BiPAP/CPAP] [RC] ASDIRECTED Care 04/24/19 09:02 Active Regular Diet [DIET] Diet 04/24/19 Breakfast Active Chest 1V Frontal [CR] Timed Exams 04/24/19 18:00 Ordered Echo Comp wo Cont [US] Routine Exams 04/24/19 19:13 Taken BMP [BASIC METABOLIC PANEL,BMP] [CHEM] AM Lab 04/25/19 05:11 Ordered CBC WITH AUTO DIFF [HEME] AM Lab 04/25/19 05:11 Ordered Acetaminophen/oxyCODONE [Percocet 325-5 MG] Med 04/24/19 12:49 Active 2 tab PO Q6H PRN Docusate Sodium [Colace] Med 04/24/19 09:45 Active 100 mg PO DAILY Ketorolac [Toradol] Med 04/24/19 14:45 Active 15 mg IVPUSH Q6H Levofloxacin/Dextrose 5%-Water [Levaquin in D5W 750 MG/ Med 04/24/19 10:15 Active 150 ML] 750 mg Premix Bag 1 bag IV Q24H Morphine Med 04/23/19 20:29 Active 2 mg IVPUSH Q2H PRN Nicotine [Habitrol] Med 04/23/19 22:15 Active 14 mg TRDERM DAILY Sequential Compression Device [OM.PC] Routine Oth 04/23/19 20:38 Ordered Medication Orders Docusate Sodium (Colace) 100 mg PO DAILY [facility] Last Admin: 04/24/19 10:02 Dose: 100 mg Cefazolin Sodium/Dextrose 2 gm (/ Premix) 50 mls @ 100 mls/hr IV ONCALL ADITYA Levofloxacin/Dextrose 750 mg/ (Premix) 150 mls @ 100 mls/hr IV Q24H [facility] Last Admin: 04/24/19 11:36 Dose: 100 mls/hr Ketorolac Tromethamine (Toradol) 15 mg IVPUSH Q6H [facility] Stop: 04/25/19 08:46 Last Admin: 04/24/19 15:08 Dose: 15 mg Morphine Sulfate (Morphine) 2 mg IVPUSH Q2H PRN PRN Reason: Pain Last Admin: 04/24/19 10:03 Dose: 2 mg Admin: 04/23/19 20:42 Dose: 2 mg Nicotine (Habitrol) 14 mg TRDERM DAILY [facility] Last Admin: 04/24/19 08:56 Dose: 14 mg Admin: 04/23/19 22:12 Dose: 14 mg Oxycodone/Acetaminophen (Percocet 325-5 Mg) 2 tab PO Q6H PRN PRN Reason: Pain (severe 7-10) Last Admin: 04/24/19 12:55 Dose: 2 tab - Assessment Assessment (Free Text/Narrative):: 1) POD#1 Right ACL reconstruction 2) pulmonary edema post-extubation (managed by medicine) - Plan Plan (Free Text/Narrative):: Funmi stated she was having no pain this morning after having received analgesic block from anesthesia last evening. Dressing CDI. Discharge instructions are to leave dressing on for 48 hours, then can remove, shower and recover incision sites daily. Pain Rx already electronically sent to pharmacy s/p SDS. She stated she had 40 steps to go up to get to her apartment after discharge. I recommended PT for education on crutch use for this activity, and she stated she already knew how to use crutches, and had made arrangements for some assistance in getting up that number of steps. She may be discharged home once cleared from medicine.
--- NOTE | 2019-04-24 18:27 | CR ---
Chest: Portable view of the chest was obtained. Comparison: Prior chest x-ray performed earlier on the same day. Central lung markings are mildly increased. Findings continue to improve when compared to prior studies. Findings are not yet at baseline. Heart size and mediastinum are within normal limits for portable technique. Bony structures are grossly intact. Impression: 1. Central lung markings are mildly increased and not at yet baseline. 2. Chest, however continues to improve when compared to prior studies. Diagnostic code #3 This report was dictated in MDT
[2019-04-25] MEDS: Acetaminophen/oxyCODONE 325-5 MG Tab PO PRN ×2 (01:07→07:39)
[2019-04-25] MEDS: Ketorolac 15 MG/ML SDV IVPUSH SCH ×2 (02:55→09:23)
[2019-04-25 06:48] LABS: BLOOD UREA NITROGEN,BUN 10 mg/dL (7.0-18.0); CARBON DIOXIDE,CO2 27.6 mmol/L (21.0-32.0); CHLORIDE,CL 105 mmol/L (98-107); GLUCOSE RANDOM 92 mg/dL (74-106); POTASSIUM,K 3.9 mmol/L (3.5-5.1); SODIUM,NA 139 mmol/L (136-145)
[2019-04-25] MEDS: Nicotine 14 MG/24 Hr Patch TRDERM SCH (09:22)
[2019-04-25] MEDS: Docusate Sodium 100 MG Cap PO SCH (09:25)
[2019-04-25] MEDS ORDERED: Levofloxacin 250 MG Tab PO ONE (10:20)
--- NOTE | 2019-04-25 10:29 | CR ---
Chest: Portable view of the chest was obtained. Note: His chest x-ray has only now been submitted for final interpretation. Comparison: Prior chest x-ray of 04/24/19. Heart size and mediastinum are normal. Right lung is clear. Left lung shows minimal increased perihilar markings. Heart size and mediastinum within normal limits for AP technique. Bony structures are grossly intact. Impression: 1. Continued improvement of chest x-ray from previous exam. Mild persisting increased lung markings on the left side. Right lung is clear. Diagnostic code #2 This report was dictated in MDT
--- NOTE | 2019-04-25 10:45 | PCM.DCSUM1 ---
Discharge Summary - Hospital Course Brief History: 33 yo female with pmh of asthma who was admitted for hypoxia following right ACL repair. Patient following extubation from the ACL repair was suspected to have a laryngeal spasm and started to produce pink frothy sputum. She was noted to desatting to 88% on RA. Chest x-ray showed bilateral pulmonary edema. She was given IV lasix in PACU with improvement in oxygenation and is not satting 95% on room air. Diagnosis: Stroke: No - Discharge Data Discharge Date: 04/25/19 Discharge Disposition: Home, Self-Care 01 Condition: Good - Referral to Home Health Primary Care Physician: Shalom Sutton NP - Discharge Diagnosis/Problem(s) (1) Pulmonary edema SNOMED Code(s): 19514699 ICD Code: J81.1 - CHRONIC PULMONARY EDEMA Status: Acute (2) S/P ACL repair SNOMED Code(s): 405041989, 72159166, 753304486 ICD Code: Z98.890 - OTHER SPECIFIED POSTPROCEDURAL STATES Status: Acute (3) History of asthma SNOMED Code(s): 354207823 ICD Code: Z87.09 - PERSONAL HISTORY OF OTHER DISEASES OF THE RESPIRATORY SYSTEM Status: Acute - Patient Summary/Data Operative Procedure(s) Performed: r acl revision recon - Patient Instructions Diet: Regular Diet as Tolerated Activity: No Strenuous Activities, Rest and Relax Today Driving: Do Not Drive Notify Provider of: Fever, Increased Pain, Swelling and Redness, Drainage, Nausea and/or Vomiting Other/Special Instructions: Refer to [facility]NEE ARTHROSCOPY DISCHARGE INSTRUCTIONS/ POSTOPERATIVE ORDERS - Discharge Plan *PRESCRIPTION DRUG MONITORING PROGRAM REVIEWED*: Not Applicable *COPY OF PRESCRIPTION DRUG MONITORING REPORT IN PATIENT JULIEN: Not Applicable Prescriptions/Med Rec: oxyCODONE HCl/Acetaminophen [Percocet 5-325 mg Tablet] 1 each PO Q6HR #28 tablet levoFLOXacin [Levaquin] 750 mg PO DAILY #3 tab Home Medications: Home Meds Divalproex Sodium [Depakote] 250 mg PO DAILY 04/18/19 [History] EPINEPHrine [Epinephrine] 1 injection SUBCUT ASDIRECTED PRN 04/18/19 [History] oxyCODONE HCl/Acetaminophen [Percocet 5-325 mg Tablet] 1 each PO Q6HR #28 tablet 04/23/19 [Rx] levoFLOXacin [Levaquin] 750 mg PO DAILY #3 tab 04/25/19 [Rx] Patient Handouts: Acetaminophen; Oxycodone tablets, Anterior Cruciate Ligament Reconstruction, Care After, Levofloxacin tablets, Pulmonary Edema Referrals: Jennifer Roth FINANCIAL SERVICES SPECIALIST [Nurse Practitioner] - 05/08/19 9:20 am Shalom Sutton NP [Primary Care Provider] - (Follow up in 1 weeks.[place] clinic staff will call you for appointment.) - Discharge Summary/Plan Comment DC Time >30 min.: Yes (discussion with her and significnat other regarding care course) Discharge Summary/Plan Comment: Admitting Diagnoses: Negative pressure pulmonary edema, s/p extubation ACL Repair Discharge Diagnoses: Negative pressure pulmonary edema, s/p extubation ACL Repair Shey was admitted secondary to negative pressure pulmonary edema. She was give oxygen support as well as some Lasix due to pulmonary edema. Day 1 she improved slightly, but xray continued to show edema. She was placed on Bipap for most of the day and night to help mobile fluids. She was also given Lasix 40 mg IV, She really improved after Lasix administration. CXR yesterday and today, have improved well. She is sating 100% on RA currently. Initially pinky frothy and hemoptysis were noted, this is becoming less and less. Today clear sputum has some blood streaks but she reports it is significantly less and the coughing has improved a lot. She is very eager to be discharged home today. Extensive education was provided to her and her significant other at bedside this morning regarding what happened and care after. [facility] in 3-4 weeks. She was also treated with Levaquin due to possible aspiration pneumonia, with leukocytosis. today Leukocytosis improved. She will be continued on 5 more days of Levaquin. She should see Orthopedics for ACL repair as previously scheduled, pain medications provided per Ortho. She was counseled on symptoms that would need further investigation, fevers, chills, return of hyemoptysis. She verbalized understanding. She is to return to ED or clinic if concerns should arise. - Patient Data Vitals - Most Recent: Last Vital Signs Temp 98.1 F 04/25/19 07:00 Pulse 62 04/25/19 03:00 Resp 14 04/25/19 09:00 BP 116/56 L 04/25/19 09:00 Pulse Ox 100 04/25/19 09:00 Weight - Most Recent: 79.379 kg I&O - Last 24 hours: Intake & Output 04/24/19 04/25/19 04/25/19 22:59 06:59 14:59 Intake Total 950 800 Output Total 1200 600 Balance -250 200 Lab Results - Last 24 hrs: Laboratory Results - last 24 hr 04/24/19 04/24/19 04/25/19 Range/Units 10:24 10:24 06:13 WBC 16.15 H 8.42 (4.0-11.0) K/uL RBC 4.90 4.41 (4.30-5.90) M/uL Hgb 13.8 12.2 (12.0-16.0) g/dL Hct 41.7 37.7 (36.0-46.0) % MCV 85.1 85.5 (80.0-98.0) fL MCH 28.2 27.7 (27.0-32.0) pg MCHC 33.1 32.4 (31.0-37.0) g/dL RDW Std Deviation 41.9 42.5 (28.0-62.0) fl RDW Coeff of Brayden 14 14 (11.0-15.0) % Plt Count 178 166 (150-400) K/uL MPV 9.50 9.20 (7.40-12.00) fL Neut % (Auto) 77.7 56.5 (48.0-80.0) % Lymph % (Auto) 18.0 33.4 (16.0-40.0) % Lea % (Auto) 4.1 8.3 (0.0-15.0) % Eos % (Auto) 0.1 1.7 (0.0-7.0) % Baso % (Auto) 0.1 0.1 (0.0-1.5) % Neut # (Auto) 12.6 H 4.8 (1.4-5.7) K/uL Lymph # (Auto) 2.9 H 2.8 H (0.6-2.4) K/uL Lea # (Auto) 0.7 0.7 (0.0-0.8) K/uL Eos # (Auto) 0.0 0.1 (0.0-0.7) K/uL Baso # (Auto) 0.0 0.0 (0.0-0.1) K/uL Nucleated RBC % 0.0 0.0 /100WBC Nucleated RBCs # 0 0 K/uL Sodium 142 (136-145) mmol/L Potassium 3.6 (3.5-5.1) mmol/L Chloride 107 (98-107) mmol/L Carbon Dioxide 25.3 (21.0-32.0) mmol/L BUN 11 (7.0-18.0) mg/dL Creatinine 0.9 (0.6-1.0) mg/dL Est Cr Clr Drug Dosing 88.07 mL/min Estimated GFR (MDRD) > 60.0 ml/min Glucose 81 (74-106) mg/dL Calcium 9.2 (8.5-10.1) mg/dL 04/25/19 Range/Units 06:13 WBC (4.0-11.0) K/uL RBC (4.30-5.90) M/uL Hgb (12.0-16.0) g/dL Hct (36.0-46.0) % MCV (80.0-98.0) fL MCH (27.0-32.0) pg MCHC (31.0-37.0) g/dL RDW Std Deviation (28.0-62.0) fl RDW Coeff of Brayden (11.0-15.0) % Plt Count (150-400) K/uL MPV (7.40-12.00) fL Neut % (Auto) (48.0-80.0) % Lymph % (Auto) (16.0-40.0) % Lea % (Auto) (0.0-15.0) % Eos % (Auto) (0.0-7.0) % Baso % (Auto) (0.0-1.5) % Neut # (Auto) (1.4-5.7) K/uL Lymph # (Auto) (0.6-2.4) K/uL Lea # (Auto) (0.0-0.8) K/uL Eos # (Auto) (0.0-0.7) K/uL Baso # (Auto) (0.0-0.1) K/uL Nucleated RBC % /100WBC Nucleated RBCs # K/uL Sodium 139 (136-145) mmol/L Potassium 3.9 (3.5-5.1) mmol/L Chloride 105 (98-107) mmol/L Carbon Dioxide 27.6 (21.0-32.0) mmol/L BUN 10 (7.0-18.0) mg/dL Creatinine 0.8 (0.6-1.0) mg/dL Est Cr Clr Drug Dosing 99.08 mL/min Estimated GFR (MDRD) > 60.0 ml/min Glucose 92 (74-106) mg/dL Calcium 8.6 (8.5-10.1) mg/dL Med Orders - Current: Current Medications Docusate Sodium (Colace) 100 mg PO DAILY [facility] Last Admin: 04/25/19 09:25 Dose: 100 mg Cefazolin Sodium/Dextrose 2 gm (/ Premix) 50 mls @ 100 mls/hr IV ONCALL [facility] Morphine Sulfate (Morphine) 2 mg IVPUSH Q2H PRN PRN Reason: Pain Last Admin: 04/24/19 10:03 Dose: 2 mg Nicotine (Habitrol) 14 mg TRDERM DAILY [facility] Last Admin: 04/25/19 09:22 Dose: 14 mg Oxycodone/Acetaminophen (Percocet 325-5 Mg) 2 tab PO Q6H PRN PRN Reason: Pain (severe 7-10) Last Admin: 04/25/19 07:39 Dose: 2 tab Discontinued Medications Albuterol (Proventil Neb Soln) 2.5 mg NEB ONETIME PRN PRN Reason: Wheezing Albuterol/Ipratropium (Duoneb 3.0-0.5 Mg/3 Ml) Confirm Administered Dose 3 ml .ROUTE .STK-MED ONE Stop: 04/23/19 15:01 Last Admin: 04/23/19 16:51 Dose: 3 ml Albuterol/Ipratropium (Duoneb 3.0-0.5 Mg/3 Ml) 3 ml NEB ONETIME ONE Stop: 04/23/19 15:40 Last Admin: 04/23/19 15:05 Dose: 3 ml Albuterol/Ipratropium (Duoneb 3.0-0.5 Mg/3 Ml) 3 ml NEB ONETIME ONE Stop: 04/23/19 16:25 Last Admin: 04/23/19 19:52 Dose: Not Given Atropine Sulfate (Atropine 0.1 Mg/Ml) 0.5 mg IVPUSH ASDIRECTED PRN PRN Reason: Hypo-perfusion Atropine Sulfate (Atropine 0.1 Mg/Ml) 1 mg IVPUSH ASDIRECTED PRN PRN Reason: Hypo-Perfusion Bupivacaine HCl (Marcaine 0.5%) Confirm Administered Dose 30 ml .ROUTE .STK-MED ONE Stop: 04/23/19 13:39 Bupivacaine HCl/Epinephrine Bitart (Marcaine 0.5%/Epinephrine 1:200,000) Confirm Administered Dose 20 ml .ROUTE .STK-MED ONE Stop: 04/23/19 13:14 Bupivacaine HCl/Epinephrine Bitart (Marcaine 0.5%/Epinephrine 1:200,000) Confirm Administered Dose 30 ml .ROUTE .STK-MED ONE Stop: 04/23/19 13:15 Bupivacaine HCl/Epinephrine Bitart (Marcaine 0.5%/Epinephrine 1:200,000) Confirm Administered Dose 10 ml .ROUTE .STK-MED ONE Stop: 04/23/19 18:12 Bupivacaine HCl/Epinephrine Bitart (Marcaine 0.25%/Epinephrine 1:200,000) Confirm Administered Dose 20 ml .ROUTE .STK-MED ONE Stop: 04/23/19 18:14 Dexamethasone (Dexamethasone) Confirm Administered Dose 20 mg .ROUTE .STK-MED ONE Stop: 04/23/19 11:46 Dextrose/Water (Dextrose 50% In Water) 50 ml IVPUSH ASDIRECTED PRN PRN Reason: Hypoglycemia Ephedrine Sulfate (Ephedrine Sulfate) Confirm Administered Dose 50 mg .ROUTE .STK-MED ONE Stop: 04/23/19 13:51 Epinephrine HCl (Adrenalin) Confirm Administered Dose 1 mg .ROUTE .STK-MED ONE Stop: 04/23/19 14:51 Epinephrine HCl (Epinephrine 1:10,000) 1 mg IVPUSH ASDIRECTED PRN PRN Reason: ACLS Guidelines Fentanyl (Sublimaze) Confirm Administered Dose 100 mcg .ROUTE .STK-MED ONE Stop: 04/23/19 11:46 Fentanyl (Sublimaze) Confirm Administered Dose 100 mcg .ROUTE .STK-MED ONE Stop: 04/23/19 14:00 Fentanyl (Sublimaze) 50 mcg IVPUSH Q5M PRN PRN Reason: Pain Last Admin: 04/23/19 15:31 Dose: 50 mcg Furosemide (Lasix) 10 mg IVPUSH NOW ONE Stop: 04/23/19 17:08 Last Admin: 04/23/19 19:39 Dose: Not Given Furosemide (Lasix) Confirm Administered Dose 20 mg .ROUTE .STK-MED ONE Stop: 04/23/19 17:10 Last Admin: 04/23/19 19:39 Dose: Not Given Furosemide (Lasix) 40 mg IVPUSH NOW ONE Stop: 04/24/19 10:09 Last Admin: 04/24/19 11:24 Dose: 40 mg Hydromorphone HCl (Dilaudid) Confirm Administered Dose 2 mg .ROUTE .STK-MED ONE Stop: 04/23/19 11:47 Lactated Ringer's (Ringers, Lactated) 1,000 mls @ 100 mls/hr IV ASDIRECTED ADITYA Last Admin: 04/23/19 12:23 Dose: 100 mls/hr Levofloxacin/Dextrose 750 mg/ (Premix) 150 mls @ 100 mls/hr IV Q24H [facility] Last Admin: 04/24/19 11:36 Dose: 100 mls/hr Ketorolac Tromethamine (Toradol) Confirm Administered Dose 30 mg .ROUTE .STK- MED ONE Stop: 04/23/19 11:57 Ketorolac Tromethamine (Toradol) 15 mg IVPUSH Q6H ADITYA Stop: 04/25/19 08:46 Last Admin: 04/25/19 09:23 Dose: 15 mg Levofloxacin (Levaquin) 750 mg PO ONETIME ONE Stop: 04/25/19 10:21 Lidocaine (Xylocaine-Mpf 2%) Confirm Administered Dose 5 ml .ROUTE .STK-MED ONE Stop: 04/23/19 11:46 Midazolam HCl (Versed 1 Mg/Ml) Confirm Administered Dose 2 mg .ROUTE .STK-MED ONE Stop: 04/23/19 11:47 Naloxone HCl (Narcan) 0.1 mg IVPUSH ASDIRECTED PRN PRN Reason: Respiratory Depression Ondansetron HCl (Zofran) Confirm Administered Dose 4 mg .ROUTE .STK-MED ONE Stop: 04/23/19 11:46 Oxycodone/Acetaminophen (Percocet 325-5 Mg) 1 tab PO Q6H PRN PRN Reason: Pain Last Admin: 04/24/19 08:57 Dose: 1 tab Oxycodone/Acetaminophen (Percocet 325-5 Mg) Confirm Administered Dose 1 tab .ROUTE .STK-MED ONE Stop: 04/23/19 16:26 Last Admin: 04/23/19 19:52 Dose: Not Given Potassium Chloride (Klor-Con M20) 40 meq PO ONETIME ONE Stop: 04/23/19 20:38 Last Admin: 04/23/19 20:57 Dose: 40 meq Propofol (Diprivan 20 Ml) Confirm Administered Dose 400 mg .ROUTE .STK-MED ONE Stop: 04/23/19 11:46 - Exam Quality Assessment: Denies: Supplemental Oxygen General: Reports: Alert, Oriented, Cooperative, No Acute Distress Lungs: Reports: Clear to Auscultation, Normal Respiratory Effort Cardiovascular: Reports: Regular Rate, Regular Rhythm GI/Abdominal Exam: Normal Bowel Sounds, Soft, Non-Tender, No Organomegaly Neurological: Reports: No New Focal Deficit Psy/Mental Status: Reports: Alert, Normal Affect, Normal Mood
[2019-04-25] MEDS: Levofloxacin/Dextrose 5%-Water 750 MG in Premix Bag 1 BAG IV SCH (10:55)
--- NOTE | 2019-04-25 12:48 | PCM.SN ---
- Free Text/Narrative Note: Patient is 33 year old female with h/o recurrent seasonal bronchitis who had re- do ACL repair by Dr Romero. Following surgery, upon arrival to patient oxygen saturation dropped to low 8os. She was p[laced on supplemental oxygen and oxy. saturation improved to mid. 90s. In the mean time patient started spiting bloody sputum in larger quantities. CXR revealed bilateral lung opacities usually seen in negative pressure pulmonary edema. I.V. Lasix was administered with some improvement in symptoms. Patient however continue to produce smaller amount of bloody sputum. BIPAP mask was added to the treatment with further improvement. Levaquin was also added to the treatment. . Production of bloody sputum stopped, serial CXR improved, we were able to wean patient from supplemental oxygen. Patient status returned to normal. The decision was made to send patient home with Levaquin priscription due to some remaining changes on CXR. Patient was advised to return immediately to Emergency room in case that symptoms reoccur. I am of opinion that patient have some underlying lung condition due to using vapor nicotine and smoke "wax marijuana' recently that was exacerbated with negative pressure pulmonary edema.
--- NOTE | 2019-04-30 11:58 | ECHO ---
EXAM DATE: 04/23/19 PATIENT'S AGE: 33 The echocardiogram report can be seen in this patient's EMR (Electronic Medical Record) in the REPORTS section. The report has also been scanned into PACs. SHEILA
== END 2019-04-25 11:45 | disposition home or self-care (01) ==
LOC: MW.SDS 11:34 → MW.ICU 18:04 → UNDOADMOB 18:04
PROVIDERS: ADMIT Internal Medicine; ATTEND Orthopaedic Surgery
DX: S83.511A Sprain of anterior cruciate ligament of right knee, initial encounter (principal); J81.1 Chronic pulmonary edema; S83.241A Other tear of medial meniscus, current injury, right knee, initial encounter; F17.210 Nicotine dependence, cigarettes, uncomplicated; Z87.09 Personal history of other diseases of the respiratory system; Z79.899 Other long term (current) drug therapy; Z91.030 Bee allergy status; Z91.02 Food additives allergy status; W00.0XXA Fall on same level due to ice and snow, initial encounter
CPT/HCPCS: 29888; 36415; 71045; 80048; 80053; 81025; 83880; 85025; 93306; 94640; 94660; 96365; 96366; 96375; 96376; A9270; C1713; C1762; C1776; G0378; J0171; J1100; J1170; J1885; J1940; J1956; J2001; J2250; J2270; J2405; J2704; J3010; J3490; J7120; 01400; J7620-GY

== ENCOUNTER 2019-05-02 12:11 | Emergency (ER) | payer OTHER ==
--- NOTE | 2019-05-02 13:50 | EDM.PDOC ---
ED HPI GENERAL MEDICAL PROBLEM - General Chief Complaint: Lower Extremity Injury/Pain Stated Complaint: referral from [place] Time Seen by Provider: 05/02/19 12:13 Source of Information: Reports: Patient History Limitations: Reports: No Limitations - History of Present Illness INITIAL COMMENTS - FREE TEXT/NARRATIVE: HISTORY AND PHYSICAL: History of present illness: Patient is a 33-year-old female who presents to the ED today from the [place] clinic for concern of possible occult blood clot in her right leg. Patient states that since her surgery on 04/23/[address] Romero here in orthopedics that she has had numbness of her right leg. Patient states that some of the numbness in the back of her calf has improved but there is an area that is still numb on her jimenez of her right lower extremity. Patient states that this numbness has been there since the surgery and is not new or changed. Patient states that following the surgery she was admitted to the ICU for pulmonary edema and states she is concerned that she has not had a follow-up chest x-ray after being discharged from the ICU. Patient states initially she was short of breath at discharge from the ICU but this has been improving. Patient denies any other symptoms or concerns. Patient states she does have a follow-up appointment this next week with Dr. Romero in his clinic. Patient denies fever, chills, chest pain, shortness of breath, or cough. Denies headache, neck stiff ness, change in vision, syncope, or near syncope. Denies nausea, vomiting, abdominal pain, diarrhea, constipation, or dysuria. Has not noted any blood in urine or stool. Patient has been eating and drinking appropriately. Review of systems: As per history of present illness and below otherwise all systems reviewed and negative. Past medical history: As per history of present illness and as reviewed below otherwise noncontributory. Surgical history: As per history of present illness and as reviewed below otherwise noncontributory. Social history: See social history for further information Family history: As per history of present illness and as reviewed below otherwise noncontributory. Physical exam: General: Patient is alert, oriented, and in no acute distress. Patient sitting comfortably on exam table. HEENT: Atraumatic, normocephalic, pupils equal and reactive bilaterally, negative for conjunctival pallor or scleral icterus, mucous membranes moist, TMs normal bilaterally, throat clear, neck supple, nontender, trachea midline. No drooling or trismus noted. No meningeal signs. No hot potato voice noted. Lungs: Clear to auscultation, breath sounds equal bilaterally, chest nontender. Heart: S1S2, regular rate and rhythm without overt murmur Abdomen: Soft, nondistended, nontender. Negative for masses or hepatosplenomegaly. Negative for costovertebral tenderness. Pelvis: Stable nontender. Genitourinary: Deferred. Rectal: Deferred. Skin: Intact, warm, dry. No lesions or rashes noted. Extremities: Surgical incisions consistent with recent surgical history without erythema, drainage, or sign of infection noted. Patient is wearing a knee brace upon arrival and does have crutches available to her. The right knee is mildly edematous without erythema or warmth. Patient does have complete sensation to deep touch but decreased sensation to light touch of the mid anterior tibia. DP/PT pulses intact of the RLE and cap refill <2 seconds. Otherwise, atraumatic, negative for cords or calf pain. Neurovascular unremarkable. Neuro: Awake, alert, oriented. Cranial nerves II through XII unremarkable. Cerebellum unremarkable. Motor and sensory unremarkable throughout. Exam nonfocal. Notes: Discussed importance for follow-up with her primary care provider as well as her orthopedic provider as scheduled. Voices understanding and is agreeable to plan of care. Denies any further questions or concerns at this time. Diagnostics: LE doppler US, CXR Therapeutics: None Prescription: None Impression: Sensation disturbance of skin, right lower extremity H/O pulmonary edema Plan: 1. Continue to use your knee immobilizer and crutches as directed and as discussed. 2. Follow-up with your orthopedic provider as scheduled and your primary care provider as discussed. Return to the ED as needed and as discussed. Definitive disposition and diagnosis as appropriate pending reevaluation and review of above. Right Leg Pain Score (Numeric/FACES): 6 - Related Data Allergies Allergy/AdvReac Type Severity Reaction Status Date / Time bee venom protein (honey bee) Allergy Anaphylactic Verified 05/02/19 12:42 Shock food dye Allergy Rash Uncoded 05/02/19 12:42 Home Meds: Home Meds Divalproex Sodium [Depakote] 250 mg PO DAILY 04/18/19 [History] EPINEPHrine [Epinephrine] 1 injection SUBCUT ASDIRECTED PRN 04/18/19 [History] oxyCODONE HCl/Acetaminophen [Percocet 5-325 mg Tablet] 1 each PO Q6HR #28 tablet 04/23/19 [Rx] Past Medical History HEENT History: Reports: None Cardiovascular History: Reports: None Other Cardiovascular History: Pulmonary Edema post surgery Respiratory History: Reports: Asthma, Bronchitis, Recurrent Gastrointestinal History: Reports: None Genitourinary History: Reports: None C[employer] History: Reports: Spontaneous Musculoskeletal History: Reports: Other (See Below) Other Musculoskeletal History: R ACL Replacement- 2016. R ACL Replacement 2019 Neurological History: Reports: None Psychiatric History: Reports: Anxiety, Dementia, PTSD Endocrine/Metabolic History: Reports: None Hematologic History: Reports: None Immunologic History: Reports: None Oncologic (Cancer) History: Reports: None Dermatologic History: Reports: None - Infectious Disease History Infectious Disease History: Reports: Chicken Pox - Past Surgical History Head Surgeries/Procedures: Reports: None HEENT Surgical History: Reports: None Cardiovascular Surgical History: Reports: None Respiratory Surgical History: Reports: None GI Surgical History: Reports: None Female Surgical History: Reports: None Endocrine Surgical History: Reports: None Neurological Surgical History: Reports: None Musculoskeletal Surgical History: Reports: Arthroscopic Knee Oncologic Surgical History: Reports: None Dermatological Surgical History: Reports: None Social & Family History - Tobacco Use Smoking Status *Q: Current Every Day Smoker Years of Tobacco use: 10 Packs/Tins Daily: 0.5 - Caffeine Use Caffeine Use: Reports: Coffee - Recreational Drug Use Recreational Drug Use: Yes Recreational Drug Type: Reports: Marijuana/Hashish Recreational Drug Use Frequency: Socially Review of Systems - Review of Systems Review Of Systems: Comprehensive ROS is negative, except as noted in HPI. ED EXAM, GENERAL - Physical Exam Exam: See Below (see dictation) Course - Vital Signs Last Recorded V/S: Last Vital Signs Temp 97.7 F 05/02/19 12:43 Pulse 80 05/02/19 12:43 Resp 17 05/02/19 12:43 BP 126/60 05/02/19 12:43 Pulse Ox 99 05/02/19 12:43 Departure - Departure Time of Disposition: 14:21 Disposition: Home, Self-Care 01 Clinical Impression: Sensation disturbance of skin, History of pulmonary edema - Discharge Information Referrals: Shalom Sutton NP [Primary Care Provider] - Forms: ED Department Discharge Additional Instructions: The following information is given to patients seen in the emergency department who are being discharged to home. This information is to outline your options for follow-up care. We provide all patients seen in our emergency department with a follow-up referral. The need for follow-up, as well as the timing and circumstances, are variable depending upon the specifics of your emergency department visit. If you don't have a primary care physician on staff, we will provide you with a referral. We always advise you to contact your personal physician following an emergency department visit to inform them of the circumstance of the visit and for follow-up with them and/or the need for any referrals to a consulting specialist. The emergency department will also refer you to a specialist when appropriate. This referral assures that you have the opportunity for follow-up care with a specialist. All of these measure are taken in an effort to provide you with optimal care, which includes your follow-up. Under all circumstances we always encourage you to contact your private physician who remains a resource for coordinating your care. When calling for follow-up care, please make the office aware that this follow-up is from your recent emergency room visit. If for any reason you are refused follow-up, please contact the [facility] Emergency Department at and asked to speak to the emergency department charge nurse. [facility] [address] [place] [id number] [address] [facility] Professional Building [address], [address] [place] [address] 1. Continue to use your knee immobilizer and crutches as directed and as discussed. 2. Follow-up with your orthopedic provider as scheduled and your primary care provider as discussed. Return to the ED as needed and as discussed. Sepsis Event Note - Evaluation Sepsis Screening Result: No Definite Risk - Focused Exam Vital Signs: Vital Signs Temp Pulse Resp BP Pulse Ox 05/02/19 12:43 97.7 F 80 17 126/60 99 Date Exam was Performed: 05/02/19 Time Exam was Performed: 14:21
--- NOTE | 2019-05-02 14:17 | US ---
Right lower extremity deep venous ultrasound: Duplex and color Doppler evaluation of the right common femoral, superficial femoral, popliteal, peroneal and posterior tibial veins was performed. Findings: Normal Doppler blood flow and compression is seen. Impression: 1. No evidence of deep venous thrombosis within the right lower extremity. Diagnostic code #1 Study was dictated in MDT
--- NOTE | 2019-05-02 14:20 | CR ---
Chest: 2 views of the chest were obtained. Comparison: Prior chest x-ray of 04/25/19. Heart size and mediastinum are normal. Lungs are clear with no acute parenchymal change. Bony structures are unremarkable. Impression: 1. Nothing acute is appreciated on 2 view chest x-ray. Diagnostic code #1 Study was dictated in MDT
== END 2019-05-02 14:37 | disposition home or self-care (01) ==
LOC: MW.ED 12:11
DX: R20.9 Unspecified disturbances of skin sensation (principal); Z87.09 Personal history of other diseases of the respiratory system; F17.210 Nicotine dependence, cigarettes, uncomplicated; Z91.030 Bee allergy status; Z79.899 Other long term (current) drug therapy; Z91.02 Food additives allergy status
CPT/HCPCS: 71046; 71046-26; 93971-26-RT; 93971-RT; 99283; 99284-25

== ENCOUNTER 2019-06-03 18:44 | Emergency (ER) | payer BC, OTHER ==
--- NOTE | 2019-06-03 19:00 | EDM.PDOC ---
ED HPI GENERAL MEDICAL PROBLEM - General Chief Complaint: ENT Problem Stated Complaint: TOOTH ACHE Time Seen by Provider: 06/03/19 19:00 Source of Information: Reports: Patient History Limitations: Reports: No Limitations - History of Present Illness INITIAL COMMENTS - FREE TEXT/NARRATIVE: HISTORY AND PHYSICAL: History of present illness: Patient is a 33-year-old female presents to the ED with complaint of tooth pain. Patient states pain started yesterday in his left upper molar. She states she has taken motrin and a friends toradol without relief of symptoms. She reports some swelling on the left side of her face this morning. She denies fevers or chills. Review of systems: As per history of present illness and below otherwise all systems reviewed and negative. Past medical history: As per history of present illness and as reviewed below otherwise noncontributory. Surgical history: As per history of present illness and as reviewed below otherwise noncontributory. Social history: No reported history of drug or alcohol abuse. Family history: As per history of present illness and as reviewed below otherwise noncontributory. Physical exam: General: Patient sitting comfortably in no acute distress and nontoxic appearing HEENT: Tooth #15 is fractured with caries and adjacent gum swelling and a small area of purulence. Atraumatic, normocephalic, pupils reactive, negative for conjunctival pallor or scleral icterus, mucous membranes moist, throat clear, neck supple, nontender, trachea midline. No meningeal signs. Extremities: Atraumatic, negative for cords or calf pain. Neurovascular unremarkable. Neuro: Awake, alert, oriented. Cranial nerves II through XII unremarkable. Cerebellum unremarkable. Motor and sensory unremarkable throughout. Exam nonfocal. Notes: Diagnostics: none Therapeutics: dental balls Prescriptions: Augmentin Impression: Dentalgia, dental infection Plan: Take antibiotic as instructed Alternate tylenol and motrin as needed Follow up with dentist Return to ED as needed as discussed Definitive disposition and diagnosis as appropriate pending reevaluation and review of above. dental Pain Score (Numeric/FACES): 10 - Related Data Allergies Allergy/AdvReac Type Severity Reaction Status Date / Time bee venom protein (honey bee) Allergy Anaphylactic Verified 06/03/19 19:00 Shock food dye Allergy Rash Uncoded 06/03/19 19:00 Home Meds: Home Meds Divalproex Sodium [Depakote] 250 mg PO DAILY 04/18/19 [History] EPINEPHrine [Epinephrine] 1 injection SUBCUT ASDIRECTED PRN 04/18/19 [History] oxyCODONE HCl/Acetaminophen [Percocet 5-325 mg Tablet] 1 each PO Q6HR #28 tablet 04/23/19 [Rx] Amoxicillin/Potassium Clav [Augmentin 875-125 Tablet] 1 each PO BID 7 Days #14 tablet 06/03/19 [Rx] Past Medical History HEENT History: Reports: None Cardiovascular History: Reports: None Other Cardiovascular History: Pulmonary Edema post surgery Respiratory History: Reports: Asthma, Bronchitis, Recurrent Gastrointestinal History: Reports: None Genitourinary History: Reports: None 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 R ACL Replacement 2019 Neurological History: Reports: None Psychiatric History: Reports: Anxiety, Dementia, PTSD Endocrine/Metabolic History: Reports: None Hematologic History: Reports: None Immunologic History: Reports: None Oncologic (Cancer) History: Reports: None Dermatologic History: Reports: None - Infectious Disease History Infectious Disease History: Reports: Chicken Pox - Past Surgical History Musculoskeletal Surgical History: Reports: Arthroscopic Knee Social & Family History - Caffeine Use Caffeine Use: Reports: Coffee ED ROS ENT - Review of Systems Review Of Systems: Comprehensive ROS is negative, except as noted in HPI. ED EXAM, ENT - Physical Exam Exam: See Below (see dictation) Course - Vital Signs Last Recorded V/S: Last Vital Signs Temp 97 F 06/03/19 18:52 Pulse 83 06/03/19 18:52 Resp 17 06/03/19 18:52 BP 130/86 06/03/19 18:52 Pulse Ox 100 06/03/19 18:52 - Orders/Labs/Meds Meds: Medications Discontinued Medications Generic Name Dose Route Start Last Admin Trade Name Freq PRN Reason Stop Dose Admin Benzocaine 2 each 06/03/19 19:01 06/03/19 19:19 Hurricaine One 20% MUCMEM 06/03/19 19:02 2 each ONETIME ONE Administration Lidocaine HCl 15 ml 06/03/19 19:01 06/03/19 19:19 Xylocaine 2% Viscous PO 06/03/19 19:02 15 ml ONETIME ONE Administration Departure - Departure Time of Disposition: 19:08 Disposition: Home, Self-Care 01 Condition: Good Clinical Impression: Dentalgia, Dental infection - Discharge Information Prescriptions: Amoxicillin/Potassium Clav [Augmentin 875-125 Tablet] 1 each PO BID 7 Days #14 tablet Instructions: Dental Abscess, [id number] Referrals: PCP,None [Primary Care Provider] - Forms: ED Department Discharge Additional Instructions: The following information is given to patients seen in the emergency department who are being discharged to home. This information is to outline your options for follow-up care. We provide all patients seen in our emergency department with a follow-up referral. The need for follow-up, as well as the timing and circumstances, are variable depending upon the specifics of your emergency department visit. If you don't have a primary care physician on staff, we will provide you with a referral. We always advise you to contact your personal physician following an emergency department visit to inform them of the circumstance of the visit and for follow-up with them and/or the need for any referrals to a consulting specialist. The emergency department will also refer you to a specialist when appropriate. This referral assures that you have the opportunity for follow-up care with a specialist. All of these measure are taken in an effort to provide you with optimal care, which includes your follow-up. Under all circumstances we always encourage you to contact your private physician who remains a resource for coordinating your care. When calling for follow-up care, please make the office aware that this follow-up is from your recent emergency room visit. If for any reason you are refused follow-up, please contact the [facility] at and asked to speak to the emergency department charge nurse. [facility] [address] [place] [address] [id number] [address] [address] Take antibiotic as instructed Alternate tylenol and motrin as needed Follow up with dentist Return to ED as needed as discussed Sepsis Event Note - Focused Exam Vital Signs: Vital Signs Temp Pulse Resp BP Pulse Ox 06/03/19 18:52 97 F 83 17 130/86 100 Date Exam was Performed: 06/03/19 Time Exam was Performed: 19:25
[2019-06-03] MEDS ORDERED: Benzocaine 20% Topical Spray UD MUCMEM ONE (19:01)
[2019-06-03] MEDS ORDERED: Lidocaine 2% Viscous Solution 15 ML Cup PO ONE (19:01)
== END 2019-06-03 19:17 | disposition home or self-care (01) ==
LOC: MW.ED 18:44
DX: K04.7 Periapical abscess without sinus (principal); K02.9 Dental caries, unspecified; J45.909 Unspecified asthma, uncomplicated; F03.90 Unspecified dementia, unspecified severity, without behavioral disturbance, psychotic disturbance, mood disturbance, and anxiety; Z91.030 Bee allergy status; Z91.09 Other allergy status, other than to drugs and biological substances
CPT/HCPCS: 99282; A9270

== ENCOUNTER 2019-11-13 19:07 | Emergency (ER) | payer OTHER | END 2019-11-13 19:32 | disposition left against medical advice (07) | LOC: MW.ED 19:07 | DX: Z53.21 Procedure and treatment not carried out due to patient leaving prior to being seen by health care provider (principal) ==

== ENCOUNTER 2019-11-16 09:08 | Emergency (ER) | payer OTHER ==
--- NOTE | 2019-11-16 09:15 | EDM.PDOC ---
ED HPI GENERAL MEDICAL PROBLEM - General Chief Complaint: ENT Problem Stated Complaint: SWOLLEN FACE Time Seen by Provider: 11/16/19 09:14 Source of Information: Reports: Patient History Limitations: Reports: No Limitations - History of Present Illness INITIAL COMMENTS - FREE TEXT/NARRATIVE: 34F no relevant PMHx presents for dental pain. Patient notes pain/swelling to the R side of her maxillary face x4 days worsening. Difficulty chewing 2/2 pain. No SOB or difficulty swallowing/tolerating secretions. No voice changes. Notes interval development of rhinorrhea over last 2 days. Has not been on abx or seen dentist recently but has an appointment coming up. - Related Data Allergies Allergy/AdvReac Type Severity Reaction Status Date / Time bee venom protein (honey bee) Allergy Anaphylactic Verified 11/16/19 09:21 Shock food dye Allergy Rash Uncoded 11/16/19 09:21 Home Meds: Home Meds Acetaminophen/oxyCODONE [Percocet 325-5 MG] 1 tab PO Q4H #18 tab 11/16/19 [Rx] Amoxicillin/Potassium Clav [Augmentin 875-125 Tablet] 1 each PO BID 7 Days #14 tablet 11/16/19 [Rx] Ibuprofen [Motrin] 600 mg PO Q6H PRN #28 tab 11/16/19 [Rx] Past Medical History HEENT History: Reports: None Cardiovascular History: Reports: None Other Cardiovascular History: Pulmonary Edema post surgery Respiratory History: Reports: Asthma, Bronchitis, Recurrent Other Respiratory History: Pulmonary Edema post surgery Gastrointestinal History: Reports: None Genitourinary History: Reports: None [employer] PROP[employer]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 R ACL Replacement 2019 Neurological History: Reports: None Psychiatric History: Reports: Anxiety, Dementia, PTSD Endocrine/Metabolic History: Reports: None Hematologic History: Reports: None Immunologic History: Reports: None Oncologic (Cancer) History: Reports: None Dermatologic History: Reports: None - Infectious Disease History Infectious Disease History: Reports: Chicken Pox - Past Surgical History Other Musculoskeletal Surgeries/Procedures:: R ACL Replacement- 2015. R ACL Replacement 2019 Social & Family History - Family History Family Medical History: Noncontributory - Caffeine Use Caffeine Use: Reports: Coffee ED ROS GENERAL - Review of Systems Review Of Systems: Comprehensive ROS is negative, except as noted in HPI. ED EXAM, GENERAL - Physical Exam Exam: See Below Exam Limited By: No Limitations General Appearance: Alert, WD/WN, No Apparent Distress Ears: Normal External Exam Nose: Normal Inspection Throat/Mouth: Normal Voice, No Airway Compromise, Other (erythema to R upper gums w/ poor dentition throughout mouth, mild amount of swelling of R maxillary face, +TTP of right maxillary face) Head: Atraumatic, Normocephalic Neck: Normal Inspection, Supple Respiratory/Chest: No Respiratory Distress, Lungs Clear, Normal Breath Sounds, No Accessory Muscle Use Cardiovascular: Normal Peripheral Pulses, Regular Rate, Rhythm Extremities: Normal Inspection Neurological: Alert Psychiatric: Normal Affect, Normal Mood Skin Exam: Warm, Dry, Intact, Normal Color Course - Vital Signs Last Recorded V/S: Last Vital Signs Temp 97.4 F 11/16/19 09:22 Pulse 84 11/16/19 09:22 Resp 16 11/16/19 09:22 BP 116/55 L 11/16/19 09:22 Pulse Ox 97 11/16/19 09:22 - Orders/Labs/Meds Meds: Medications Discontinued Medications Generic Name Dose Route Start Last Admin Trade Name Freq PRN Reason Stop Dose Admin Amoxicillin/Clavulanate Potassium 1 tab 11/16/19 09:30 Augmentin 875 Mg/125 Mg PO 11/16/19 09:31 ONETIME ONE Oxycodone/Acetaminophen 1 tab 11/16/19 09:30 Percocet 325-5 Mg PO 11/16/19 09:31 ONETIME ONE - Re-Assessments/Exams Free Text/Narrative Re-Assessment/Exam: 11/16/19 09:36 Will tx pain with percocet/motrin, will give rx for augmentin for dental infection, patient understands taht she must f/u with a dentist for definitive treatment. Departure - Departure Time of Disposition: 09:30 Disposition: Home, Self-Care 01 Condition: Good Clinical Impression: Dental infection - Discharge Information Prescriptions: Amoxicillin/Potassium Clav [Augmentin 875-125 Tablet] 1 each PO BID 7 Days #14 tablet Ibuprofen [Motrin] 600 mg PO Q6H PRN #28 tab PRN Reason: Pain Acetaminophen/oxyCODONE [Percocet 325-5 MG] 1 tab PO Q4H #18 tab Referrals: PCP,None [Primary Care Provider] - Forms: ED Department Discharge Additional Instructions: The following information is given to patients seen in the emergency department who are being discharged to home. This information is to outline your options for follow-up care. We provide all patients seen in our emergency department with a follow-up referral. The need for follow-up, as well as the timing and circumstances, are variable depending upon the specifics of your emergency department visit. If you don't have a primary care physician on staff, we will provide you with a referral. We always advise you to contact your personal physician following an emergency department visit to inform them of the circumstance of the visit and for follow-up with them and/or the need for any referrals to a consulting specialist. The emergency department will also refer you to a specialist when appropriate. This referral assures that you have the opportunity for follow-up care with a specialist. All of these measure are taken in an effort to provide you with optimal care, which includes your follow-up. Under all circumstances we always encourage you to contact your private physician who remains a resource for coordinating your care. When calling for follow-up care, please make the office aware that this follow-up is from your recent emergency room visit. If for any reason you are refused follow-up, please contact the [facility] at and asked to speak to the emergency department charge nurse. Please follow up with your primary care physician. If you do not have a primary care physician, see below: [facility] [address] [place] [id number] [facility] [address] [place] [phone] You should also follow up with a dentist as you would benefit from dental X-rays and may need your tooth pulled or an abscess drained. Thank you for your patience and for allowing us to participate in your medical care! Stay safe and healthy and know that we are always here for your medical needs! Sepsis Event Note (ED) - Focused Exam Vital Signs: Vital Signs Temp Pulse Resp BP Pulse Ox 11/16/19 09:22 97.4 F 84 16 116/55 L 97
[2019-11-16] MEDS ORDERED: Amoxicillin/Clavulanate K 875-125 MG Tab PO ONE (09:30)
[2019-11-16] MEDS ORDERED: Acetaminophen/oxyCODONE 325-5 MG Tab PO ONE (09:30)
== END 2019-11-16 09:44 | disposition home or self-care (01) ==
LOC: MW.ED 09:08
DX: K04.7 Periapical abscess without sinus (principal); K00.7 Teething syndrome; J45.909 Unspecified asthma, uncomplicated; Z91.030 Bee allergy status; Z91.048 Other nonmedicinal substance allergy status
CPT/HCPCS: 99282; A9270

== ENCOUNTER 2020-12-06 10:13 | Emergency (ER) | payer OTHER ==
[2020-12-06] MEDS ORDERED: Sodium Chloride 0.9% 2.5 ML Syringe FLUSH PRN (10:52)
[2020-12-06] MEDS ORDERED: Sodium Chloride 0.9% 10 ML Syringe FLUSH PRN (10:52)
[2020-12-06] MEDS ORDERED: Sodium Chloride 0.9% 500 ML IV ONE (10:52)
[2020-12-06] MEDS ORDERED: Ketorolac 30 MG/ML SDV IVPUSH ONE (10:54)
--- NOTE | 2020-12-06 11:28 | CR ---
Indication: Chest Pain Comparison: Two-view chest May 02, 2019 Technique: Single AP view chest Findings: There is mild hyperinflation. There is no focal consolidation, effusion, or pneumothorax. The cardiac silhouette is within normal limits. The bony thorax is grossly intact. And Impression: Mild hyperinflation without evidence of dense consolidation. Dictated by Gavino Mosher MD @ 12/06/2020 11:27:05 AM (Electronically Signed)
[2020-12-06 11:49] LABS: BLOOD UREA NITROGEN,BUN 6 mg/dL (7.0-18.0); CARBON DIOXIDE,CO2 25.3 mmol/L (21.0-32.0); CHLORIDE,CL 102 mmol/L (98-107); GLUCOSE RANDOM 103 mg/dL (74-106); SODIUM,NA 136 mmol/L (136-145)
[2020-12-06 12:03] LABS: CORONAVIRUS COVID-19 NAA POSITIVE (NEGATIVE); INFLUENZA A NAA NEGATIVE (NEGATIVE); INFLUENZA B NAA NEGATIVE (NEGATIVE); RESPIRATORY SYNCYTIAL VIR NAA NEGATIVE (NEGATIVE)
--- NOTE | 2020-12-06 12:27 | EDM.PDOC ---
ED HPI GENERAL MEDICAL PROBLEM - General Chief Complaint: Headache Stated Complaint: BODY ACHES,HEADACHES Time Seen by Provider: 12/06/20 10:48 - History of Present Illness INITIAL COMMENTS - FREE TEXT/NARRATIVE: Patient has had symptoms for several days of headache shortness of breath diarrhea and body aches. No high fever. Patient is not immunized against Covid. No exacerbating or alleviating factors. Patient denies any cough with productive sputum. She is asthmatic. generalized body aches Pain Score (Numeric/FACES): 10 - Related Data Allergies Allergy/AdvReac Type Severity Reaction Status Date / Time bee venom protein (honey bee) Allergy Anaphylactic Verified 12/06/20 10:40 Shock food dye Allergy Rash Uncoded 12/06/20 10:40 Home Meds: Home Meds FLUoxetine [PROzac Weekly] 1 tab PO DAILY 12/06/20 [History] buPROPion [Wellbutrin] 1 tab PO DAILY 12/06/20 [History] predniSONE [Prednisone] 50 mg PO DAILY #4 tablet 12/06/20 [Rx] Past Medical History HEENT History: Reports: None Cardiovascular History: Reports: None Other Cardiovascular History: Pulmonary Edema post surgery Respiratory History: Reports: Asthma, Bronchitis, Recurrent Other Respiratory History: Pulmonary Edema post surgery Gastrointestinal History: Reports: None Genitourinary History: Reports: None PHARMACY INFORMATICS SPECIALIST History: Reports: Spontaneous Musculoskeletal History: Reports: Other (See Below) Other Musculoskeletal History: R ACL Replacement- 2015. R ACL Replacement 2019 Neurological History: Reports: None Psychiatric History: Reports: Anxiety, Dementia, PTSD Endocrine/Metabolic History: Reports: None Hematologic History: Reports: None Immunologic History: Reports: None Oncologic (Cancer) History: Reports: None Dermatologic History: Reports: None - Infectious Disease History Infectious Disease History: Reports: Chicken Pox - Past Surgical History Head Surgeries/Procedures: Reports: None HEENT Surgical History: Reports: None Cardiovascular Surgical History: Reports: None Respiratory Surgical History: Reports: None GI Surgical History: Reports: None Female Surgical History: Reports: None Endocrine Surgical History: Reports: None Neurological Surgical History: Reports: None Musculoskeletal Surgical History: Reports: Arthroscopic Knee Other Musculoskeletal Surgeries/Procedures:: R ACL Replacement- 2015. R ACL Replacement 2019 Oncologic Surgical History: Reports: None Dermatological Surgical History: Reports: None Social & Family History - Family History Family Medical History: No Pertinent Family History - Tobacco Use Tobacco Use Status *Q: Current Every Day Tobacco User Years of Tobacco use: 12 Packs/Tins Daily: 0.5 - Caffeine Use Caffeine Use: Reports: Coffee - Recreational Drug Use Recreational Drug Use: No ED ROS GENERAL - Review of Systems Review Of Systems: Comprehensive ROS is negative, except as noted in HPI. ED EXAM, GENERAL - Physical Exam Exam: See Below Free Text/Narrative:: CONSTITUTIONAL: well appearing in no acute distress SKIN: Warm, dry, and intact without rash HENT: Normocephalic, atraumatic, PULMONARY: Manage breath sounds bilaterally but still moderate to good air exchange. Scant bilateral wheeze CARDIOVASCULAR: regular rate, No murmur, rubs, or gallops GASTROINTESTINAL: soft, nondistended, nontender NEUROLOGIC: normal speech, II-XII intact. light touch/5/5 power equal and symmet mireya in upper and lower extremities without deficit MUSCULOSKELETAL: no gross deformities, atraumatic PSYCHIATRIC: normal mood and affect Course - Vital Signs Text/Narrative:: ddx: Subarachnoid hemorrhage, viral cephalgia, Covid, electrolyte abnormalities, dehydration, asthma, PE, other Patient presents as outlined above. Patient Covid positive. Patient with some diminished breath sounds and feeling better after inhaler. Patient with asthma and wheeze. Steroids given. Otherwise patient without significant respiratory distress but is at risk secondary to asthma thus [facility] has been advising patient to get this as an outpatient Last Recorded V/S: Last Vital Signs Temp 36.2 C 12/06/20 10:42 Pulse 97 12/06/20 10:42 Resp 16 12/06/20 10:42 BP 123/65 12/06/20 10:42 Pulse Ox 99 12/06/20 10:42 - Orders/Labs/Meds Orders: Active Orders 24 hr Category Date Time Status UA W/JUANA RFLX IF INDICATED [URIN] Stat Lab 12/06/20 10:53 Ordered Famotidine [Pepcid] Med 12/06/20 12:31 Once 20 mg PO ONETIME ONE Sodium Chloride 0.9% [Saline Flush] Med 12/06/20 10:52 Active 10 ml FLUSH ASDIRECTED PRN Sodium Chloride 0.9% [Saline Flush] Med 12/06/20 10:52 Active 2.5 ml FLUSH ASDIRECTED PRN predniSONE Med 12/06/20 12:31 Once 50 mg PO ONETIME ONE Saline Lock Insert [OM.PC] Stat Oth 12/06/20 10:52 Ordered Medication Orders Famotidine (Famotidine 20 Mg Tab) 20 mg PO ONETIME ONE Stop: 12/06/20 12:32 Prednisone (Prednisone 10 Mg Tab) 50 mg PO ONETIME ONE Stop: 12/06/20 12:32 Sodium Chloride (Sodium Chloride 0.9% 10 Ml Syringe) 10 ml FLUSH ASDIRECTED PRN PRN Reason: Keep Vein Open Last Admin: 12/06/20 11:13 Dose: 10 ml Documented by: JAMES Sodium Chloride (Sodium Chloride 0.9% 2.5 Ml Syringe) 2.5 ml FLUSH ASDIRECTED PRN PRN Reason: Keep Vein Open Last Admin: 12/06/20 11:13 Dose: 2.5 ml Documented by: JAMES Labs: Laboratory Tests 12/06/20 12/06/20 12/06/20 Range/Units 10:54 11:00 11:00 WBC 3.08 L (4.0-11.0) K/uL RBC 5.18 (4.30-5.90) M/uL Hgb 14.7 (12.0-16.0) g/dL Hct 43.7 (36.0-46.0) % MCV 84.4 (80.0-98.0) fL MCH 28.4 (27.0-32.0) pg MCHC 33.6 (31.0-37.0) g/dL RDW Std Deviation 40.7 (28.0-62.0) fl RDW Coeff of Brayden 13 (11.0-15.0) % Plt Count 86 L (150-400) K/uL MPV 9.20 (7.40-12.00) fL Neut % (Auto) 56.9 (48.0-80.0) % Lymph % (Auto) 34.1 (16.0-40.0) % Harmon % (Auto) 8.4 (0.0-15.0) % Eos % (Auto) 0.3 (0.0-7.0) % Baso % (Auto) 0.3 (0.0-1.5) % Neut # (Auto) 1.8 (1.4-5.7) K/uL Lymph # (Auto) 1.1 (0.6-2.4) K/uL Harmon # (Auto) 0.3 (0.0-0.8) K/uL Eos # (Auto) 0.0 (0.0-0.7) K/uL Baso # (Auto) 0.0 (0.0-0.1) K/uL Nucleated RBC % 0.0 /100WBC Nucleated RBCs # 0 K/uL Sodium 136 (136-145) mmol/L Potassium 4.0 (3.5-5.1) mmol/L Chloride 102 (98-107) mmol/L Carbon Dioxide 25.3 (21.0-32.0) mmol/L BUN 6 L (7.0-18.0) mg/dL Creatinine 0.8 (0.6-1.0) mg/dL Est Cr Clr Drug Dosing 97.27 mL/min Estimated GFR (MDRD) > 60.0 ml/min Glucose 103 (74-106) mg/dL Calcium 8.2 L (8.5-10.1) mg/dL Total Bilirubin 0.1 L (0.2-1.0) mg/dL AST 20 (15-37) IU/L ALT 18 (14-63) IU/L Alkaline Phosphatase 52 (46-116) U/L Total Protein 7.1 (6.4-8.2) g/dL Albumin 3.5 (3.4-5.0) g/dL Globulin 3.6 (2.6-4.0) g/dL Albumin/Globulin Ratio 1.0 (0.9-1.6) Influenza Type A RNA NEGATIVE (NEGATIVE) RSV RNA (INAAT) NEGATIVE (NEGATIVE) Influenza Type B RNA NEGATIVE (NEGATIVE) SARS-CoV-2 RNA (CHELI) POSITIVE H (NEGATIVE) Meds: Medications Generic Name Dose Route Start Last Admin Trade Name Freq PRN Reason Stop Dose Admin Famotidine 20 mg 12/06/20 12:31 Famotidine 20 Mg Tab PO 12/06/20 12:32 ONETIME ONE Prednisone 50 mg 12/06/20 12:31 Prednisone 10 Mg Tab PO 12/06/20 12:32 ONETIME ONE Sodium Chloride 10 ml 12/06/20 10:52 12/06/20 11:13 Sodium Chloride 0.9% 10 Ml Syringe FLUSH 10 ml ASDIRECTED PRN Administration Keep Vein Open Sodium Chloride 2.5 ml 12/06/20 10:52 12/06/20 11:13 Sodium Chloride 0.9% 2.5 Ml Syringe FLUSH 2.5 ml ASDIRECTED PRN Administration Keep Vein Open Discontinued Medications Generic Name Dose Route Start Last Admin Trade Name Linsey PRN Reason Stop Dose Admin Sodium Chloride 500 mls @ 999 mls/hr 12/06/20 10:52 12/06/20 11:12 Normal Saline IV 12/06/20 11:22 999 mls/hr .BOLUS ONE Administration Ketorolac Tromethamine 30 mg 12/06/20 10:54 12/06/20 11:12 Ketorolac 30 Mg/Ml Sdv IVPUSH 12/06/20 10:55 30 mg ONETIME ONE Administration Departure - Departure Time of Disposition: 12:33 Disposition: Admitted As Inpatient 68 Condition: Good Clinical Impression: COVID-19, Asthma - Discharge Information Instructions: COVID-19: Quarantine vs. Isolation - [facility] (01/29/2020), Asthma, Adult, [id number], COVID-19: What to Do If You Are Sick- [facility] (04/28/2020) Referrals: PCP,None [Primary Care Provider] - Forms: ED Department Discharge Additional Instructions: Return for significant shortness of breath or change or worsening condition. Use your inhaler 2 puffs 4 times a day for 2 days then as needed thereafter. Take steroids as prescribed. Follow-up to get your infusion of Covid medication (Regeneron) in the infusion center as discussed. Please quarantine as per CDC guidelines as you have Covid: You can be around others after: 10 days since symptoms first appeared and 24 hours with no fever without the use of fever-reducing medications and Other symptoms of COVID-19 are improving* *Loss of taste and smell may persist for weeks or months after recovery and need not delay the end of isolation? Note that these recommendations do not apply to people with severe COVID-19 or with weakened immune systems (immunocompromised). The following information is given to patients seen in the emergency department who are being discharged to home. This information is to outline your options for follow-up care. We provide all patients seen in our emergency department with a follow-up referral. The need for follow-up, as well as the timing and circumstances, are variable depending upon the specifics of your emergency department visit. If you don't have a primary care physician on staff, we will provide you with a referral. We always advise you to contact your personal physician following an emergency department visit to inform them of the circumstance of the visit and for follow-up with them and/or the need for any referrals to a consulting specialist. The emergency department will also refer you to a specialist when appropriate. This referral assures that you have the opportunity for follow-up care with a specialist. All of these measure are taken in an effort to provide you with optimal care, which includes your follow-up. Primary care clinics in the area: [facility] [address] [place] [address] [place] [address] Under all circumstances we always encourage you to contact your private physician who remains a resource for coordinating your care. When calling for follow-up care, please make the office aware that this follow-up is from your recent emergency room visit. If for any reason you are refused follow-up, please contact the [facility] at and asked to speak to the emergency department charge nurse. Sepsis Event Note (ED) - Focused Exam Vital Signs: Vital Signs Temp Pulse Resp BP Pulse Ox 12/06/20 10:42 36.2 C 97 16 123/65 99 - My Orders Last 24 Hours: My Active Orders 12/06/20 10:52 Sodium Chloride 0.9% [Saline Flush] 10 ml FLUSH ASDIRECTED PRN Sodium Chloride 0.9% [Saline Flush] 2.5 ml FLUSH ASDIRECTED PRN Saline Lock Insert [OM.PC] Stat 12/06/20 10:53 UA W/JUANA RFLX IF INDICATED [URIN] Stat 12/06/20 12:31 Famotidine [Pepcid] 20 mg PO ONETIME ONE predniSONE 50 mg PO ONETIME ONE - Assessment/Plan Last 24 Hours: My Active Orders 12/06/20 10:52 Sodium Chloride 0.9% [Saline Flush] 10 ml FLUSH ASDIRECTED PRN Sodium Chloride 0.9% [Saline Flush] 2.5 ml FLUSH ASDIRECTED PRN Saline Lock Insert [OM.PC] Stat 12/06/20 10:53 UA W/JUANA RFLX IF INDICATED [URIN] Stat 12/06/20 12:31 Famotidine [Pepcid] 20 mg PO ONETIME ONE predniSONE 50 mg PO ONETIME ONE
[2020-12-06] MEDS ORDERED: Famotidine 20 MG Tab PO ONE (12:31)
[2020-12-06] MEDS ORDERED: predniSONE 10 MG Tab PO ONE (12:31)
== END 2020-12-06 13:07 | disposition critical access hospital (66) ==
LOC: MW.ED 10:13
DX: U07.1 COVID-19 (principal); J45.909 Unspecified asthma, uncomplicated; Z72.0 Tobacco use; Z91.030 Bee allergy status; Z91.018 Allergy to other foods; Z79.899 Other long term (current) drug therapy
CPT/HCPCS: 0241U; 36415; 71045; 80053; 85025; 96374; 99285; J1885; J7030

== ENCOUNTER 2022-02-27 18:24 | Emergency (ER) | payer OTHER ==
[2022-02-27] MEDS ORDERED: Ketorolac 30 MG/ML SDV IM STA (19:36)
[2022-02-27 20:03] LABS: CORONAVIRUS COVID-19 NAA NEGATIVE (NEGATIVE); INFLUENZA A NAA NEGATIVE (NEGATIVE); INFLUENZA B NAA NEGATIVE (NEGATIVE); RESPIRATORY SYNCYTIAL VIR NAA NEGATIVE (NEGATIVE)
== END 2022-02-27 20:50 | disposition home or self-care (01) ==
LOC: MW.ED 18:24
DX: J40 Bronchitis, not specified as acute or chronic (principal); Z91.041 Radiographic dye allergy status; Z91.030 Bee allergy status; Z79.899 Other long term (current) drug therapy; Z20.822 Contact with and (suspected) exposure to COVID-19
CPT/HCPCS: 0241U; 71045; 87651; 96372; 99283; J1885

== ENCOUNTER 2022-03-24 08:52 | Emergency (ER) | payer OTHER ==
[2022-03-24 09:41] LABS: CORONAVIRUS COVID-19 NAA NEGATIVE (NEGATIVE); INFLUENZA A NAA NEGATIVE (NEGATIVE); INFLUENZA B NAA NEGATIVE (NEGATIVE); RESPIRATORY SYNCYTIAL VIR NAA NEGATIVE (NEGATIVE)
== END 2022-03-24 11:05 | disposition home or self-care (01) ==
LOC: MW.ED 08:52
DX: J36 Peritonsillar abscess (principal); J01.90 Acute sinusitis, unspecified; J45.909 Unspecified asthma, uncomplicated; Z91.030 Bee allergy status; Z91.041 Radiographic dye allergy status; Z72.0 Tobacco use; Z20.822 Contact with and (suspected) exposure to COVID-19
CPT/HCPCS: 0241U; 99283

== ENCOUNTER 2022-03-30 23:27 | Emergency (ER) | payer OTHER ==
[2022-03-31] MEDS ORDERED: Ketorolac 30 MG/ML SDV IVPUSH ONE (00:32)
[2022-03-31 00:51] LABS: CARBON DIOXIDE,CO2 26.4 mmol/L (21.0-32.0); POTASSIUM,K 4.7 mmol/L (3.5-5.1)
[2022-03-31 01:07] LABS: CORONAVIRUS COVID-19 NAA NEGATIVE (NEGATIVE); INFLUENZA A NAA NEGATIVE (NEGATIVE); INFLUENZA B NAA NEGATIVE (NEGATIVE)
== END 2022-03-31 00:45 | disposition left against medical advice (07) ==
LOC: MW.ED 23:27
DX: J03.80 Acute tonsillitis due to other specified organisms (principal); B96.89 Other specified bacterial agents as the cause of diseases classified elsewhere; M54.2 Cervicalgia; J45.909 Unspecified asthma, uncomplicated; Z91.030 Bee allergy status; Z91.018 Allergy to other foods; Z20.822 Contact with and (suspected) exposure to COVID-19
CPT/HCPCS: 0240U; 36415; 80053; 83605; 85025; 85610; 87040; 96374; 99284; J1885

== ENCOUNTER 2022-09-25 18:38 | Emergency (ER) | payer SELFPAY ==
[2022-09-25] MEDS ORDERED: Sodium Chloride 0.9% 1,000 ML IV ONE (19:05)
[2022-09-25] MEDS ORDERED: Ketorolac 30 MG/ML SDV IVPUSH ONE (19:16)
[2022-09-25] MEDS ORDERED: Ondansetron 4 MG/2 ML SDV IVPUSH ONE (19:16)
[2022-09-25 19:43] LABS: APPEARANCE,URINE CLOUDY; COLOR,URINE YELLOW; GLUCOSE,URINE NEGATIVE (NEGATIVE); KETONES,URINE NEGATIVE (NEGATIVE); LEUKOCYTE ESTERASE,URINE NEGATIVE (NEGATIVE); NITRITE,URINE NEGATIVE (NEGATIVE); OCCULT BLOOD,URINE TRACE-INTACT (NEGATIVE); PH,URINE 5.5 (5.0-8.0); PROTEIN,URINE NEGATIVE (NEGATIVE); UROBILINOGEN,URINE 0.2 EU/dL (<2.0)
[2022-09-25 19:46] LABS: BILIRUBIN,URINE SMALL (NEGATIVE)
[2022-09-25 19:48] LABS: BASOPHILS PERCENT AUTO 0.1 % (0.0-1.5); EOSINOPHILS ABSOLUTE AUTO 0.1 K/uL (0.0-0.7); EOSINOPHILS PERCENT AUTO 0.8 % (0.0-7.0); HEMATOCRIT 47.3 % (36.0-46.0); HEMOGLOBIN 15.9 g/dL (12.0-16.0); LYMPHOCYTES ABSOLUTE AUTO 1.7 K/uL (0.6-2.4); LYMPHOCYTES PERCENT AUTO 16.7 % (16.0-40.0); MEAN CORPUSCULAR HEMOGLOBIN 28.2 pg (27.0-32.0); MEAN CORPUSCULAR HGB CONC 33.6 g/dL (31.0-37.0); MEAN CORPUSCULAR VOLUME 83.9 fL (80.0-98.0); MONOCYTES ABSOLUTE AUTO 0.5 K/uL (0.0-0.8); MONOCYTES PERCENT AUTO 4.6 % (0.0-15.0); NEUTROPHILS ABSOLUTE AUTO 7.8 K/uL (1.4-5.7); NEUTROPHILS PERCENT AUTO 77.8 % (48.0-80.0); NRBC ABSOLUTE 0 K/uL; PLATELET COUNT,PLT 250 K/uL (150-400); RED BLOOD CELL COUNT 5.64 M/uL (4.30-5.90); WHITE BLOOD CELL COUNT,WBC 10.03 K/uL (4.0-11.0)
[2022-09-25 19:52] LABS: EPITHELIAL CELLS,URINE MANY (NONE-FEW); RBC,URINE 0-5 (0-2/HPF); SQUAMOUS EPITHELIAL CELLS,UR MANY; WBC,URINE 0-5 (0-5/HPF)
[2022-09-25 19:53] LABS: AMORPHOUS SEDIMENT,URINE FEW (NEGATIVE); BACTERIA,URINE FEW (NEGATIVE); MUCUS,URINE MODERATE (NONE-MOD)
[2022-09-25 20:08] LABS: ALBUMIN 4.1 g/dL (3.4-5.0); BILIRUBIN TOTAL 0.5 mg/dL (0.2-1.0); CALCIUM 9.1 mg/dL (8.5-10.1); CARBON DIOXIDE,CO2 23.3 mmol/L (21.0-32.0); CREATININE 0.7 mg/dL (0.6-1.0); EST CRCL DRUG DOSING (CG) 110.12 mL/min; POTASSIUM,K 5.1 mmol/L (3.5-5.1); PROTEIN TOTAL,TP 8.2 g/dL (6.4-8.2)
== END 2022-09-25 20:39 | disposition home or self-care (01) ==
LOC: MW.ED 18:38
DX: K52.9 Noninfective gastroenteritis and colitis, unspecified (principal); Z79.899 Other long term (current) drug therapy; Z91.02 Food additives allergy status; Z91.030 Bee allergy status
CPT/HCPCS: 36415; 80053; 81001; 81025; 83690; 85025; 87045; 87046; 87324; 87449; 87635; 87899; 96361; 96374; 96375; 99284; J1885; J2405; J7030; 99285; U0002

== ENCOUNTER 2022-09-26 14:40 | Emergency (ER) | payer SELFPAY | END 2022-09-26 15:40 | disposition left against medical advice (07) | LOC: MW.ED 14:40 | DX: Z53.21 Procedure and treatment not carried out due to patient leaving prior to being seen by health care provider (principal) ==

== ENCOUNTER 2023-08-11 20:29 | Emergency (ER) | payer OTHER | END 2023-08-11 20:40 | disposition left against medical advice (07) | LOC: MW.ED 20:29 | DX: Z53.21 Procedure and treatment not carried out due to patient leaving prior to being seen by health care provider (principal) ==